=== PATIENT | male | born 1960 ===

== ENCOUNTER 2017-11-22 07:56 | Emergency (ER) | payer SELFPAY ==
[2017-11-22 08:27] LABS: Hemoglobin 17.8 g/dL (14.0-18.0); Mean Corpuscular HGB CONC 34.3 g/dL (32.0-36.0); Mean Corpuscular Hemoglobin 34.9 pg (27.0-31.0); Mean Platelet Volume 7.9 fL (7.4-10.4); Platelet Count 251 thou/uL (130-400); RBC Distribution Width 12.8 % (11.5-14.5); Red Blood Cell (RBC) Count 5.09 mill/uL (4.70-6.10); White Blood Cell (WBC) Count 26.8 thou/uL (4.8-10.8)
[2017-11-22] MEDS ORDERED: CEFAZOLIN 1 GM VIAL ONE ×2 (08:29→08:33)
[2017-11-22] MEDS ORDERED: Fentanyl 100 MCG/2 ML VIAL ONE ×2 (08:30→10:22)
[2017-11-22 08:50] LABS: ALT (SGPT) 134 U/L (8-55); AST (SGOT) 99 U/L (5-34); Albumin 4.2 g/dL (3.5-5.0); Alkaline Phosphatase 72 U/L (40-150); Anion Gap 16 mmol/L (10-20); BUN (Urea Nitrogen) 25 mg/dL (8.4-25.7); Bilirubin, Total 1.3 mg/dL (0.2-1.2); Calc. Creatinine Clearance 0 mL/min (70-130); Calcium 10.1 mg/dL (7.8-10.44); Carbon Dioxide 22 mmol/L (22-29); Chloride 102 mmol/L (98-107); Estimated GFR-MDRD 64; Globulin 3.1 g/dL (2.4-3.5); Glucose 223 mg/dL (70-105); Potassium 3.8 mmol/L (3.5-5.1); Protein, Total 7.3 g/dL (6.0-8.3); Sodium 136 mmol/L (136-145)
[2017-11-22 08:51] LABS: Band 7 % (5-11); Eosinophils 1 % (0-10); Lymphocytes 9 % (21-51); MDiff Complete? YES; Monocytes 1 % (0-10); Neutrophil 81 % (42-75); RBC Morphology Normal; Reactive Lymphocytes 1 % (0-10)
[2017-11-22 09:00] LABS: Troponin I Less than 0.010 ng/mL (< 0.028)
[2017-11-22 09:04] LABS: CKMB 8.1 ng/mL (0-6.6)
[2017-11-22] MEDS ORDERED: Proparacaine 0.5% Opth 15 ML BOT ONE (09:27)
[2017-11-22] MEDS ORDERED: Fluorescein Opthalmic Strip ONE (09:27)
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
[2017-11-22 11:17] LABS: Bilirubin Negative (Negative); Blood, Urine Small (Negative); Glucose, Urine (Dipstick) Negative (Negative); Leukocyte Negative (Negative); Nitrite Negative (Negative); Protein, Urine (Dipstick) Negative (Neg-Trace)
[2017-11-22 11:26] LABS: Clarity CLEAR (Clear)
[2017-11-22 11:27] LABS: Bacteria/HPF 1+ HPF (None Seen); Hyaline Casts/LPF NONE SEEN LPF (0-3 Hyaline); Squamous Epithelial 0-3 HPF (0-3)
[2017-11-22] MEDS ORDERED: Cyclobenzaprine 10 MG TAB ONE (11:36)
[2017-11-22] MEDS ORDERED: Lidocaine 1% w/Epinephrine 1:100K 20 ML VIAL ONE (11:40)
[2017-11-22] MEDS ORDERED: HYDROcodone/Acetaminophen 10/325 mg Tablet ONE (13:23)
[2017-11-22] MEDS ORDERED: Ketorolac Tromethamine 30 MG/ML VIAL ONE (13:24)
[2017-11-22] MEDS ORDERED: Clindamycin/D5W 900 mg/50 ml Premix Bag ONE (13:24)
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
== END 2017-11-22 15:30 | disposition home or self-care (01) ==
LOC: ERS 07:56
DX: S22.42XA Multiple fractures of ribs, left side, initial encounter for closed fracture (principal); S01.81XA Laceration without foreign body of other part of head, initial encounter; S09.93XA Unspecified injury of face, initial encounter; V89.2XXA Person injured in unspecified motor-vehicle accident, traffic, initial encounter
CPT/HCPCS: 12011; 36415; 70450; 70486; 71260; 72125; 74177; 80053; 81003; 81015; 82553; 84484; 85025; 86850; 86900; 86901; 87086; 90471; 93005; 94799; 96361; 96365; 96367; 96375; 96376; G0390; J0690; J1885; J2001; J3010; J3490

== ENCOUNTER 2019-05-30 21:45 | Inpatient (IN) | payer SELFPAY ==
[2019-05-30] MEDS ORDERED: Ondansetron PF 4 MG/2 ML Vial IVP PRN (23:26)
[2019-05-30] MEDS ORDERED: Acetaminophen 325 MG TAB PO PRN (23:26)
[2019-05-30] MEDS ORDERED: hydrALAZINE 20 MG/ML VIAL SLOW IVP PRN ×2 (23:40→23:53)
[2019-05-30] MEDS: HYDROcodone/Acetaminophen 7.5/325 mg Tablet PO PRN (23:58)
[2019-05-30] MEDS: Sodium Chloride 0.9% 1,000 ML IV SCH (23:59)
[2019-05-31 00:28] LABS: Bacteria/HPF None Seen HPF (None Seen); Bilirubin Negative (Negative); Blood, Urine Negative (Negative); Clarity Turbid (Clear); Glucose, Urine (Dipstick) 50 mg/dL (Negative); Leukocyte Negative Leu/uL (Negative); Nitrite Negative (Negative); Protein, Urine (Dipstick) 70 mg/dL (Neg-Trace); RBC/HPF 0-3 HPF (0-3); Squamous Epithelial 0-3 HPF (0-3); Urobilinogen 3 mg/dL (Less than 2)
[2019-05-31 00:29] LABS: Urine Culture Reflex Yes Yes
--- NOTE | 2019-05-31 03:05 | HP ---
CHIEF COMPLAINT: Dizziness, headache, fall. HISTORY OF PRESENT ILLNESS: Mr. Escamilla is a 59-year-old gentleman, who initially presented to [facility] ER earlier today for evaluation of dizziness that has been present for one week, headache, and fall today. The patient states that he did not hit his head when he fell today. He also notes recent sinus congestion and runny nose with pressure behind his eyes. It is unknown if patient has had a fever over recent weeks. The patient was transferred to [facility] in [place] to be admitted to the critical care unit for a higher level of care. This is due to CT brain findings of large acute on chronic right subdural hematoma with significant midline shift. Additionally, old fluid was noted in the maxillary sinuses. Initial labs revealed elevated white blood cell count of 26 and low platelet count of 17. Aside from recent presumed sinus infection, the patient states that he is otherwise fairly healthy and does not take any medications on a regular basis. He reports occasional social alcohol use, but denies dependence or reliance on alcohol. He denies any illicit drug use. He denies any known personal or family history of cancer. He is not on any aspirin or blood thinners. He does report increased generalized weakness recently, however, he denies any acute vision changes, nausea, vomiting, chest pain, or shortness of breath. PHYSICAL EXAMINATION: The patient is awake, alert, and appropriate. He is alert and oriented x3. He correctly identifies his full name, the days of week, the month, the year, and states that he is in a hospital in [place], [place]. He was only unable to state the exact date being the of this month. He is able to correctly identify a pen and says of its use. He was able to correctly define and island. Cranial nerves 2 through 12 are intact. Pupils equal, round, reactive to light. Extraocular movements are intact. No nystagmus present. No tongue fasciculations. No pronator drift. The patient has excellent strength throughout his upper extremity and lower extremity myotomes bilaterally. Sensation to light touch is intact and equal in his upper and lower extremities bilaterally. Gait was not assessed. The patient was somewhat more sleepy upon arrival to [facility] in [place] compared to when he was seen prior to transfer. Otherwise, his neuro exam remained stable. IMPRESSION/DIAGNOSES: 1. Large right subdural hematoma, acute on chronic. 2. Dizziness, headache, recent fall. 3. Thrombocytopenia. 4. Leukocytosis. PLAN: I have reviewed this patient's case and imaging with Dr. Hart. The patient has been admitted to critical care unit for diligent neuro monitoring with q.1 hour neuro checks. Our service will be contacted with any changes. I have ordered a repeat CT of the brain without contrast to be completed tomorrow morning. The patient is in need of urgent neurosurgical interventions rather than emergent surgeries given his favorable neurologic exam. Focus overnight will be to administer platelets to improve his thrombocytopenia. Ideally, 3 units of platelets would be ordered, however, the hospital only has 2 units available to give the patient, so this has been ordered. Blood cultures, urinalysis with reflex culture, and chest x-ray have been ordered to further workup source of leukocytosis. We have consulted our medical colleagues for medical management. Blood pressure parameters have been set to systolic blood pressure less than 140 and diastolic blood pressure less than 90. The patient remain n.p.o. at this time. Head of bed elevated to 30 degrees. Bedrest at this time. Our team will see the patient in the morning for reevaluation or sooner for any neurologic changes. Please call us with any questions or concerns. This was a 50-minute initial patient encounter, in which greater than 50% of the time was spent in counseling. The remaining time was spent in review of imaging, records, evaluation of the patient, examination, and formulation of a plan. Job ID: [id number]
[2019-05-31 06:41] LABS: INR-International Normal Ratio 1.2; PTT 31.2 SEC (22.9-36.1); Prothrombin Time 15.5 SEC (12.0-14.7)
[2019-05-31 06:54] LABS: Band 12 % (5-11); Eosinophils 1 % (0-10); Hemoglobin 7.2 g/dL (14.0-18.0); Lymphocytes 26 % (21-51); MDiff Complete? YES; Mean Corpuscular HGB CONC 35.3 g/dL (32.0-36.0); Mean Corpuscular Hemoglobin 37.2 pg (27.0-31.0); Metamyelocyte 11 % (0-0); Monocytes 3 % (0-10); Myelocyte 3 % (0-0); Neutrophil 43 % (42-75); Nucleated RBC 4 % (0); Platelet Count 89 thou/uL (130-400); Platelet Morphology Comment Appears Decreased; RBC Distribution Width 14.3 % (11.5-14.5); Reactive Lymphocytes 1 % (0-10); Red Blood Cell (RBC) Count 1.94 mill/uL (4.70-6.10); White Blood Cell (WBC) Count 25.4 thou/uL (4.8-10.8)
[2019-05-31 06:56] LABS: Anion Gap 16 mmol/L (10-20); BUN (Urea Nitrogen) 27 mg/dL (8.4-25.7); CRP (Inflammatory) 3.38 mg/dL (= or < 0.5); Calc. Creatinine Clearance 94 mL/min (70-130); Calcium 8.6 mg/dL (7.8-10.44); Carbon Dioxide 21 mmol/L (22-29); Chloride 111 mmol/L (98-107); Estimated GFR-MDRD 79; Glucose 96 mg/dL (70-105); Sodium 144 mmol/L (136-145)
[2019-05-31] MEDS ORDERED: Fentanyl 100 MCG/2 ML VIAL ONE (07:20)
[2019-05-31] MEDS ORDERED: Phenylephrine HCL 10 MG/ML VIAL ONE (07:20)
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
[2019-05-31] MEDS ORDERED: Thrombin 5000 UNITS/5 ML VIAL ONE (07:45)
[2019-05-31] MEDS ORDERED: Bacitracin Zinc Ointment 30 gm TUBE ONE (07:45)
[2019-05-31] MEDS ORDERED: Lidocaine 1% w/Epinephrine 1:100K 20 ML VIAL ONE (07:45)
[2019-05-31] MEDS ORDERED: Sodium Chloride 0.9% 10 ML ONE (07:45)
[2019-05-31] MEDS ORDERED: Lidocaine 0.5%/Epinephrine 1:200,000 50 ml Vial ONE (07:51)
[2019-05-31] MEDS: Pantoprazole 40 MG VIAL IVP SCH (08:02)
--- NOTE | 2019-05-31 08:06 | RAD ---
EXAM: Single view of the chest HISTORY: Leukocytosis COMPARISON: None FINDINGS: Single view of the chest shows a normal sized cardiomediastinal silhouette. There is no hanane dence of consolidation, mass, or pleural effusion. The bones are unremarkable. IMPRESSION: No evidence of acute cardiopulmonary disease
[2019-05-31] MEDS ORDERED: levETIRAcetam 1000 MG/100 ML PREMIX BAG ONE (08:57)
[2019-05-31] MEDS ORDERED: FLU VACC QS2019-20(6MOS UP)/PF 60 MCG/0.5 ML SYRINGE IM ONE (09:00)
[2019-05-31] MEDS ORDERED: Ondansetron PF 4 MG/2 ML Vial ONE (10:17)
[2019-05-31] MEDS ORDERED: ePHEDrine/0.9% NaCl/PF SYRINGE 50 mg/10 ml ONE (10:17)
[2019-05-31] MEDS ORDERED: Rocuronium Bromide 10 MG/ML (10ML VIAL) ONE (10:17)
[2019-05-31] MEDS ORDERED: Lidocaine 1% PF 5 ML VIAL ONE (10:17)
[2019-05-31] MEDS ORDERED: Esmolol 100 MG/10 ML VIAL ONE (10:17)
[2019-05-31] MEDS ORDERED: Dexamethasone 20 MG/5 ML VIAL ONE (10:17)
[2019-05-31] MEDS ORDERED: PROPOFOL 200 MG/20 ML VIAL ONE (10:17)
[2019-05-31] MEDS ORDERED: PHENYLEPHRINE-NS 100 MCG/ML 10 ML SYRINGE ONE (10:17)
[2019-05-31] MEDS ORDERED: Glycopyrrolate 0.2 MG/ML 5 ML SYRINGE ONE (10:17)
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
[2019-05-31] MEDS ORDERED: Lorazepam 2 MG/ML VIAL ONE ×2 (10:47→11:01)
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
[2019-05-31 13:25] LABS: Amphetamine Not Detected (NotDetected); Barbiturates Screen Not Detected (NotDetected); Benzodiazepine Screen Detected (NotDetected); Cocaine Metabolite Screen Not Detected (NotDetected); Medtox Control Line Valid? VALID (VALID); Medtox Reader # READER 1; Methadone Not Detected (NotDetected); Methamphetamine Detected (NotDetected); Opiate Screen Detected (NotDetected); Oxycodone Screen Not Detected (NotDetected); Phencyclidine (PCP) Not Detected (NotDetected); THC/Cannabinoid Screen Not Detected (NotDetected); Tricyclic Screen Not Detected (NotDetected)
[2019-05-31] MEDS: Piperacillin/Tazobactam 4.5 GM in Sodium Chloride 0.9% 100 ML IVPB SCH ×3 (13:32→23:02)
[2019-05-31] MEDS: Sodium Chloride 0.9% 1,000 ML IV SCH (13:35)
[2019-05-31] MEDS: Multivitamins, Adult 10 ML, Folic Acid 1 MG, Thiamine HCl 100 MG in Dextrose 5 %-0.45 %... IV SCH (14:14)
--- NOTE | 2019-05-31 14:38 | PDOC.HHP ---
Hospitalist HPI - History of Present Illness History of Present Illness: Consult: Medical management Referral Source: Dr. Hart Mr. Escamilla is a 59 y/o man with PMH of substance abuse, HTN who presents s/p fall with resultant subdural hematoma identified with significant midline shift. He underwent exacuation of hematoma via burrhole today by Neurosurgery. Medical team has been consulted for medical management. Upon evaluation, patient is sedated post procedure. Majority of history obtained from chart. He apparently is a long time drinker and uses cocaine and multiple substances. As per nursing staff, he was quite agitated post procedure and required use of Ativan to calm him down. He does not have history of known liver disease; however, it is noted that his platelets are 89. His urine was positive for opiates as well as benzos. His Hb prior to surgery was around 7.2. Otherwise he has history of apparent hypertension but is not currently on any medication. Hospitalist ROS - Review of Systems ROS unobtainable: due to mental status - Medication Medications: Active Medications Generic Name Dose Route Start Last Admin Trade Name Freq PRN Reason Stop Dose Admin Hydrocodone Bitart/Acetaminophen 1 tab 05/30/19 23:26 05/30/19 23:58 [place] 7.5/325 PO 1 tab Q4H PRN Administration Moderate Pain (4-6) Thiamine HCl 100 mg/ Sodium 51 mls @ 100 mls/hr 05/31/19 11:00 05/31/19 13:32 Chloride IVPB 06/03/19 11:31 Not Given 1100 MARILYNN Piperacillin Sod/Tazobactam 100 mls @ 200 mls/hr 05/31/19 12:00 05/31/19 13: 32 Sod 4.5 gm/ Sodium Chloride IVPB 100 mls Q6HR MARILYNN Administration Multivitamins 10 ml/ Folic 1,011.2 mls @ 80 mls/hr 05/31/19 13:45 05/31/19 14 :14 Acid 1 mg/ Thiamine HCl 100 mg IV 1,011.2 mls / Dextrose/Sodium Chloride Q24HR MARILYNN Administration Pantoprazole Sodium 40 mg 05/31/19 09:00 05/31/19 08:02 Protonix IVP Not Given DAILY MARILYNN Active Medications Acetaminophen (Tylenol) 650 mg PO Q4H PRN PRN Reason: Headache/Fever/Mild Pain (1-3) Hydrocodone Bitart/Acetaminophen ([place] 7.5/325) 1 tab PO Q4H PRN PRN Reason: Moderate Pain (4-6) Last Admin: 05/30/19 23:58 Dose: 1 tab Beer (Beer) 1 each PO Q4H PRN PRN Reason: ALCOHOL CRAVING Diazepam (Valium) 5 mg IVP Q6H PRN PRN Reason: Agitation Last Admin: 05/31/19 18:08 Dose: 5 mg Folic Acid (Folvite) 1 mg PO DAILY [facility] Hydralazine HCl (Apresoline) 10 mg SLOW IVP Q15MIN PRN PRN Reason: SBP greater than 140 Thiamine HCl 100 mg/ Sodium (Chloride) 51 mls @ 100 mls/hr IVPB 1100 [facility] Stop: 06/03/19 11:31 Last Admin: 05/31/19 13:32 Dose: Not Given Piperacillin Sod/Tazobactam (Sod 4.5 gm/ Sodium Chloride) 100 mls @ 200 mls/hr IVPB Q6HR [facility] Last Admin: 05/31/19 18:08 Dose: 100 mls Multivitamins 10 ml/ Folic Acid 1 mg/ Thiamine HCl 100 mg / Dextrose/Sodium Chloride 1,011.2 mls @ 80 mls/hr IV Q24HR [facility] Last Admin: 05/31/19 14:14 Dose: 1,011.2 mls Levetiracetam 500 mg/ Device 100 mls @ 200 mls/hr IVPB BID [facility] Last Admin: 05/31/19 20:40 Dose: 100 mls Potassium Chloride/Sodium Chloride (Ns 0.9% W/ 40 Meq Kcl) 1,000 mls @ 75 mls/ hr IV .[id number] [facility] Last Admin: 05/31/19 19:59 Dose: 1,000 mls Dexmedetomidine HCl 400 mcg/ (Sodium Chloride) 100 mls @ 0 mls/hr IVPB INF [facility] ; Protocol Last Admin: 05/31/19 21:10 Dose: 100 mls Lorazepam (Ativan) 2 mg SLOW IVP Q4H PRN PRN Reason: Agitation Last Admin: 05/31/19 20:34 Dose: 2 mg Miscellaneous Information (Communication Order-Pharmacy) 0 each FS PRN PRN PRN Reason: HOLD BLOOD THINNERS, HOLD ASA Ondansetron HCl (Zofran) 4 mg IVP Q6H PRN PRN Reason: Nausea/Vomiting Pantoprazole Sodium (Protonix) 40 mg IVP DAILY MARILYNN Last Admin: 05/31/19 08:02 Dose: Not Given Sodium Chloride (Flush - Normal Saline) 10 ml IVF PRN PRN PRN Reason: Saline Flush Sodium Chloride (Normal Saline Pf) 10 ml FS PRN PRN PRN Reason: RECONSTITUTION Hospitalist History - Past Medical History Source: RN notes reviewed Cardiac: reports: HTN Pulmonary: reports: no pertinent history JOB HAND: reports: no pertinent history Gastrointestinal: reports: no pertinent history Heme/Onc: reports: no pertinent history Hepatobiliary: reports: no pertinent history Psych: reports: Addictions Musculoskeletal: reports: no pertinent history Infectious Disease: reports: no pertinent history ENT: reports: no pertinent history Renal/: reports: no pertinent history Endocrine: reports: no pertinent history Dermatology: reports: no pertinent history - Past Surgical History Past Surgical History: reports: no pertinent history - Family History Family History: reports: no pertinent history - Social History Smoking Status: Smoker, status unknown Alcohol: reports: Heavy Drugs: reports: cocaine, Other Activity level: independent ambulation - Exam General - other findings: Sedated post ativan Eye: PERRL ENT - other findings: righ cranium s/p burrhole drainage of serosanguinous into bag Neck: supple, no JVD Heart: RRR, no murmur, no gallops, no rubs Respiratory: CTAB, no wheezes, no rales, no ronchi Gastrointestinal: soft, non-tender, non-distended, normal bowel sounds, no palpable masses, no hepatomegaly, no splenomegaly, no bruit Skin: normal turgor, no lesions, no rashes Neurological - other findings: Unable to assess at this time, patient is sedated Psychiatric: somnolent Hospitalist Results - Labs Result Diagrams: 05/31/19 15:57 05/31/19 06:20 Lab results: WBC 25.4 thou/uL (4.8-10.8) H 05/31/19 06:20 Hgb 7.2 g/dL (14.0-18.0) L 05/31/19 06:20 Hct 20.4 % (42.0-52.0) L 05/31/19 06:20 MCV 105.0 fL (78.0-98.0) H 05/31/19 06:20 Plt Count 89 thou/uL (130-400) L 05/31/19 06:20 Band Neuts % (Manual) 12 % (5-11) H 05/31/19 06:20 ESR Westergren 19 mm/hr (Less than 20) 05/31/19 06:20 Sodium 144 mmol/L (136-145) 05/31/19 06:20 Potassium 4.0 mmol/L (3.5-5.1) 05/31/19 06:20 Chloride 111 mmol/L (98-107) H 05/31/19 06:20 Carbon Dioxide 21 mmol/L (22-29) L 05/31/19 06:20 BUN 27 mg/dL (8.4-25.7) H 05/31/19 06:20 Creatinine 0.98 mg/dL (0.7-1.3) 05/31/19 06:20 Glucose 96 mg/dL (70-105) 05/31/19 06:20 Calcium 8.6 mg/dL (7.8-10.44) 05/31/19 06:20 C-Reactive Protein 3.38 mg/dL (= or < 0.5) H 05/31/19 06:20 Urine Ketones Trace mg/dL (Negative) A 05/30/19 23:46 Urine Blood Negative (Negative) 05/30/19 23:46 Urine Nitrite Negative (Negative) 05/30/19 23:46 Ur Leukocyte Esterase Negative Ramin/uL (Negative) 05/30/19 23:46 Urine RBC 0-3 HPF (0-3) 05/30/19 23:46 Urine WBC 4-6 HPF (0-3) A 05/30/19 23:46 Ur Squamous Epith Cells 0-3 HPF (0-3) 05/30/19 23:46 Urine Bacteria None Seen HPF (None Seen) 05/30/19 23:46 - Radiology Interpretation CT scan - head Status: report reviewed by md Hospitalist H&P A/P - Problem (1) Subdural hematoma Code(s): S06.5X9A - TRAUM SUBDR HEM W LOC OF UNSP DURATION, INIT Status: Acute Assessment and Plan: s/o burrhole evacuation 05/31/19 (2) Leukocytosis Code(s): D72.829 - ELEVATED WHITE BLOOD CELL COUNT, UNSPECIFIED Status: Acute Assessment and Plan: likely reactive to subdural hematoma (3) Thrombocytopenia Code(s): D69.6 - THROMBOCYTOPENIA, UNSPECIFIED Status: Acute (4) Polysubstance (excluding opioids) dependence Code(s): F19.20 - OTHER PSYCHOACTIVE SUBSTANCE DEPENDENCE, UNCOMPLICATED Status: Acute (5) Alcohol abuse Code(s): F10.10 - ALCOHOL ABUSE, UNCOMPLICATED Status: Acute (6) Macrocytic anemia Code(s): D53.9 - NUTRITIONAL ANEMIA, UNSPECIFIED Status: Acute - Plan Plan: POD1 from burrhole evacuation. Continue with ASE for alcohol withdrawl sxs. Ativan PRN for anxiety/agitation Unknown history of liver disease, further workup include US liver Peripheral smear for thrombocytopenia WBC likely reactive, continue to monitor post surgery Macrocytic anemia likely due to alcoholism, will order vitamin b12 and folate Thank you for this consultation. We will continue to follow along with you.
[2019-05-31] MEDS: Lorazepam 2 MG/ML VIAL SLOW IVP PRN ×3 (14:50→20:34)
[2019-05-31 16:48] LABS: Band 9 % (5-11); Differential Comment Blast-Like Cell(s); Hemoglobin 8.8 g/dL (14.0-18.0); Lymphocytes 30 % (21-51); MDiff Complete? YES; Mean Corpuscular HGB CONC 35.3 g/dL (32.0-36.0); Mean Corpuscular Hemoglobin 35.5 pg (27.0-31.0); Mean Platelet Volume 8.3 fL (7.4-10.4); Metamyelocyte 6 % (0-0); Myelocyte 10 % (0-0); Neutrophil 35 % (42-75); Platelet Count 59 thou/uL (130-400); Platelet Morphology Comment Appears Decreased; Polychromasia SLIGHT = 2-3 cells (100X) (0-2/hpf); RBC Distribution Width 16.2 % (11.5-14.5); Reactive Lymphocytes 1 % (0-10); Red Blood Cell (RBC) Count 2.47 mill/uL (4.70-6.10); Reflex for Review?? YES; White Blood Cell (WBC) Count 19.4 thou/uL (4.8-10.8)
[2019-05-31] MEDS ORDERED: Diazepam 10 MG/2 ML SYRINGE IVP PRN (17:46)
[2019-05-31] MEDS ORDERED: BEER 1 CAN PO SCH (19:15)
[2019-05-31] MEDS ORDERED: [UNRECOGNIZED DRUG - REMARK] FS PRN (19:15)
[2019-05-31] MEDS: NS 0.9% w/ 40 MEQ KCL 1,000 ML IV SCH (19:59)
[2019-05-31] MEDS ORDERED: BEER 1 CAN PO PRN (23:00)
[2019-05-31 23:52] LABS: INR-International Normal Ratio 1.4; PTT 32.5 SEC (22.9-36.1)
[2019-06-01 00:05] LABS: Anion Gap 13 mmol/L (10-20); BUN (Urea Nitrogen) 25 mg/dL (8.4-25.7); Calc. Creatinine Clearance 91 mL/min (70-130); Calcium 8.1 mg/dL (7.8-10.44); Carbon Dioxide 22 mmol/L (22-29); Chloride 115 mmol/L (98-107); Estimated GFR-MDRD 75; Glucose 118 mg/dL (70-105); Potassium 3.9 mmol/L (3.5-5.1); Sodium 146 mmol/L (136-145)
[2019-06-01 00:13] LABS: Hemoglobin 7.7 g/dL (14.0-18.0); Mean Corpuscular HGB CONC 35.3 g/dL (32.0-36.0); Mean Corpuscular Hemoglobin 35.7 pg (27.0-31.0); Mean Platelet Volume 8.3 fL (7.4-10.4); Platelet Count 47 thou/uL (130-400); RBC Distribution Width 16.3 % (11.5-14.5); Red Blood Cell (RBC) Count 2.15 mill/uL (4.70-6.10); White Blood Cell (WBC) Count 22.2 thou/uL (4.8-10.8)
[2019-06-01 00:14] LABS: Band 4 % (5-11); Differential Comment Blast-Like Cell(s); Hypochromia SLIGHT = 6-15 cells (100X) (0-5/hpf); Lymphocytes 32 % (21-51); MDiff Complete? YES; Metamyelocyte 1 % (0-0); Monocytes 14 % (0-10); Myelocyte 7 % (0-0); Neutrophil 36 % (42-75); Nucleated RBC 1 % (0); Platelet Morphology Comment Appears Decreased; Polychromasia SLIGHT = 2-3 cells (100X) (0-2/hpf)
[2019-06-01] MEDS: Piperacillin/Tazobactam 4.5 GM in Sodium Chloride 0.9% 100 ML IVPB SCH ×2 (05:20→11:33)
--- NOTE | 2019-06-01 07:53 | CT ---
PRELIMINARY REPORT/[facility]/EMERGENCY AFTER HOURS PROCEDURE EXAM: CT Head Without Intravenous Contrast. CLINICAL HISTORY: PREVIOUS IMAGING SENT YESTERDAY. F/U BLEED. S/P CRANIOTOMY. TECHNIQUE: Axial computed tomography images of the head/brain without intravenous contrast. COMPARISON: CT - CT BRAIN WO CON - 05/31/2019 03:30 AM GLASS BENDER FINDINGS: BRAIN: Status post right frontal and parietal bur hole craniotomies, with placement of an extra-axial drain along the right frontal convexity, with expected postprocedural foci of pneumocephalus. Reduction in size of mixed attenuation right frontoparietal subdural hematoma, currently measuring up to 1.5 cm in thickness in the axial plane (previously 2.3 cm). Small amount of subdural blood products layering a long the right falx and right tentorium. Unchanged small areas of subdural hemorrhage along the left anterior falx and inner table of the anterior left frontal calvarium, measuring up to 2-3 mm. Reducti on in right to left midline shift, currently measuring about 5 mm, up to 1.[address] Red uced effacement of the right lateral ventricle. No evidence of significant obstructive hydrocephalus . No new or increasing areas of hemorrhage. Preserved thompson-white matter differentiation otherwise. No significant transtentorial or tonsillar herniation. Preserved basal cisterns. ORBITS: The orbits are unremarkable. SINUSES AND MASTOIDS: Status post right maxillary antrectomy. Moderate mucosal thickening of the rig ht maxillary sinus. For mild mucosal thickening of the ethmoid and sphenoid sinuses. Partial opacif ication of the frontal sinuses. No air-fluid fluid levels. The mastoid air cells are clear. SOFT TISSUES: Right lateral frontoparietal soft tissue swelling and skin closure norma, post postpr ocedural in nature. BONES: No acute skull fracture. IMPRESSION: 1. Status post right parietal and frontal bur hole craniotomies, subdural hematoma evacuation and ri ght frontal subdural drainage catheter placement, with reduction in mass-effect, midline shift size a nd size of right subdural hemorrhage. 2. Similar small foci of left frontal subdural hemorrhage. 3. Paranasal sinus disease. ELECTRONICALLY SIGNED BY: Salvatore Ladd MD Jun 01, 2019 4:34:36 AM GLASS BENDER FINAL REPORT EMERGENT AFTER HOURS CT OF THE BRAIN WITHOUT CONTRAST: COMPARISON: 05/31/2019. FINDINGS/IMPRESSION: I agree with the findings and impression given in the preliminary report per [facility] physici an. There are interval postsurgical changes for evaluation of the right subdural hematoma with decre ased size of the hematoma. There is a stable very small left frontal subdural hematoma.
--- NOTE | 2019-06-01 07:59 | ULT ---
US Gallbladder RUQ: 06/01/2019 12:00 AM CLINICAL HISTORY: Elevated LFTs. STUDY: Limited right upper quadrant ultrasound of abdomen. COMPARISON: None. FINDINGS: Liver: Size: Normal. Echogenicity: Normal. Contour: Smooth. Mass: None. Bile ducts: No intrahepatic or extrahepatic biliary dilatation. Common bile duct measures 4 mm. Gallbladder: Cholelithiasis. Pancreas: Not visualized. Right kidney: No pelvicalyceal dilatation. Right kidney measuring 11.2 cm in length. IMPRESSION: Cholelithiasis
[2019-06-01] MEDS: NS 0.9% w/ 40 MEQ KCL 1,000 ML IV SCH ×2 (08:32→21:36)
[2019-06-01 08:49] LABS: Mean Corpuscular HGB CONC 34.5 g/dL (32.0-36.0); Mean Corpuscular Hemoglobin 34.1 pg (27.0-31.0); Mean Corpuscular Volume 98.9 fL (78.0-98.0); RBC Distribution Width 16.5 % (11.5-14.5); Red Blood Cell (RBC) Count 2.65 mill/uL (4.70-6.10)
[2019-06-01 08:51] LABS: Anion Gap 12 mmol/L (10-20); BUN (Urea Nitrogen) 28 mg/dL (8.4-25.7); Calc. Creatinine Clearance 90 mL/min (70-130); Calcium 7.9 mg/dL (7.8-10.44); Carbon Dioxide 23 mmol/L (22-29); Chloride 112 mmol/L (98-107); Estimated GFR-MDRD 75; Glucose 122 mg/dL (70-105); Sodium 143 mmol/L (136-145)
[2019-06-01] MEDS ORDERED: Folic Acid 1 MG TAB PO SCH (09:00)
[2019-06-01] MEDS ORDERED: Polyvinyl Alcohol 1.4%/Povidone 0.6% Opth Drops EA EYE PRN (09:04)
[2019-06-01 09:22] LABS: Band 9 % (5-11); Eosinophils 2 % (0-10); Hypersemented Neutrophil SLIGHT; Hypochromia SLIGHT = 6-15 cells (100X) (0-5/hpf); Large Platelets SLIGHT; Lymphocytes 23 % (21-51); MDiff Complete? YES; Mean Platelet Volume 8.9 fL (7.4-10.4); Metamyelocyte 9 % (0-0); Monocytes 18 % (0-10); Myelocyte 2 % (0-0); Neutrophil 29 % (42-75); Nucleated RBC 2 % (0); Platelet Count 52 thou/uL (130-400); Platelet Morphology Comment Appears Decreased; Reactive Lymphocytes 5 % (0-10); Vacuoles SLIGHT; White Blood Cell (WBC) Count 19.5 thou/uL (4.8-10.8)
[2019-06-01 09:51] LABS: Acetaminophen Less than 6.0 mcg/mL (10.0-30.0); Salicylate Less than 8.0 mg/dL (15.0-30.0)
[2019-06-01] MEDS: Sodium Chloride 0.9% (PF) 10 ML VIAL FS PRN (10:35)
[2019-06-01] MEDS: Pantoprazole 40 MG VIAL IVP SCH ×2 (10:35→20:28)
--- NOTE | 2019-06-01 11:20 | OP ---
DATE OF PROCEDURE: 05/30/2019 LOCATION: OR 12. PRISM MEASURER: Yane Calle PA-C A modifier 57 should be added to this surgery as the decision to operate was made when I saw the patient. PRE-PROCEDURE DIAGNOSES: Large right multi-aged subdural hematoma with midline shift, mass effect, and neurologic decline. POSTPROCEDURE DIAGNOSES: Large right multi-aged subdural hematoma with midline shift, mass effect, and neurologic decline. PROCEDURE PERFORMED: Right frontal john paul hole evacuation of chronic subdural hematoma. DESCRIPTION OF PROCEDURE: After informed consent was obtained from the patient's girlfriend and the nature of the pathology and procedure described, we took the patient to the OR. Proper patient, pause, and identification were carried out. He was placed under excellent general endotracheal anesthesia and positioned supine. The right frontal region and parietal regions were sterilely cleansed, prepared, and draped and the hair was clipped. The wounds were then opened with combination of sharp, monopolar, and blunt dissection following sterile cleansing, preparation, and draping. Bur holes were fashioned, the dura was opened, motor oil fluid came out under significant pressure. We evacuated this and irrigated until it was clear. We then placed a red rubber catheter in the frontal hole and secured this. This was secured to the scalp. The wounds were copiously irrigated again and closed in anatomic layers, the patient emerged from anesthesia. Job ID: [id number]
[2019-06-01 11:41] LABS: ALT (SGPT) 18 U/L (8-55); AST (SGOT) 52 U/L (5-34); Albumin 3.3 g/dL (3.5-5.0); Alkaline Phosphatase 139 U/L (40-110); Bilirubin, Direct 0.7 mg/dL (0.1-0.3); Bilirubin, Total 1.3 mg/dL (0.2-1.2); Protein, Total 5.8 g/dL (6.0-8.3)
--- NOTE | 2019-06-01 12:12 | PRG ---
DATE OF SERVICE: 06/01/2019 SUBJECTIVE: The patient began to exhibit signs of alcohol withdrawal yesterday afternoon and has been placed on Precedex, which has helped his agitation. OBJECTIVE: VITAL SIGNS: His temperature 97.8, pulse 60, blood pressure 85/64, and O2 saturation in the low 90s. HEENT: He has a right parietal drain in place. NECK: No adenopathy or JVD. LUNGS: Clear to auscultation. CARDIAC: S1 and S2. Regular. ABDOMEN: Soft. EXTREMITIES: No edema. LABORATORY DATA: White blood cell count 19.5, hematocrit 26.2, and platelet count 52. He has 29% neutrophils, 9% bands, 9% metamyelocytes, and 2% myelocytes. The differential comments had blast type cells. Sodium 143, potassium 4, chloride 112, CO2 of 23, BUN 28, creatinine 1.0, and glucose 122. His UDS is positive for opiates, methamphetamines, and benzodiazepines. ASSESSMENT: 1. Status post subdural hematoma, which has now been evacuated. 2. Anemia. 3. Thrombocytopenia. 4. Blasts like cells on CBC. 5. Alcohol withdrawal. PLAN: 1. Continue Precedex. 2. Continue ICU care. 3. Consider Hematology consult for abnormality seen on smear. Job ID: [id number]
--- NOTE | 2019-06-01 12:16 | PRG ---
DATE OF SERVICE: 06/01/[address] looks satisfactory today. His drain output has been approximately 85 mL. We will leave this in place. He has been quite rambunctious and wild, turns out evidently according to his brothers. He is a heavy drinker. He denies it and states that he only drinks on the weekend. His tox screen is positive for methamphetamine as well. Obviously, this does not help and explains his hypertension. Nevertheless, his thrombocytopenia and anemia continue to be a challenge and note that his abdominal ultrasound in regard to his liver was negative. We will add some liver enzymes, but we appreciate our assessment from GI doctors. He is much more tame and calm today, appears to be neurologically intact. Job ID: [id number]
[2019-06-01] MEDS: HYDROcodone/Acetaminophen 7.5/325 mg Tablet PO PRN ×3 (12:43→22:15)
--- NOTE | 2019-06-01 14:01 | PDOC.HOSPP ---
- Subjective Encounter Date: 06/01/19 Encounter Time: 12:45 Subjective: Patient reports taking 3-4 aleve daily x >2 yrs for his back pain. He came in due to headaches for 1-2 wks with easy bruising. Found to have a subdural hematoma and underwent john paul hole surgery. Reports blood in stools, melena, bleeding gums and nosebleeds. Denies blood vomitus but reports blood in sputum. Denies blood in urine. Reports drinking alcohol only on the weekends. - Objective Vital Signs & Weight: Vital Signs (12 hours) Temp 06/01/19 07:40 97.8 F 06/01/19 07:00 97.8 F 06/01/19 03:00 98.9 F Weight Admit Weight 178 lb 12.718 oz Weight 178 lb 2.136 oz Most Recent Monitor Data Heart Rate from ECG 70 NIBP 110/62 NIBP BP-Mean 78 Respiration from ECG 21 SpO2 100 I&O: 05/31/19 06/01/19 06/02/19 06:59 06:59 06:59 Intake Total 934 2552 810 Output Total 75 2030 505 Balance 859 522 305 Result Diagrams: 06/01/19 08:24 06/01/19 08:24 Hospitalist ROS - Medication Medications: Active Medications Generic Name Dose Route Start Last Admin Trade Name Freq PRN Reason Stop Dose Admin Hydrocodone Bitart/Acetaminophen 1 tab 05/30/19 23:26 06/01/19 12:43 [place] 7.5/325 PO 1 tab Q4H PRN Administration Moderate Pain (4-6) Piperacillin Sod/Tazobactam 100 mls @ 200 mls/hr 05/31/19 12:00 06/01/19 11: 33 Sod 4.5 gm/ Sodium Chloride IVPB 100 mls Q6HR MARILYNN Administration Multivitamins 10 ml/ Folic 1,011.2 mls @ 80 mls/hr 05/31/19 13:45 05/31/19 14 :14 Acid 1 mg/ Thiamine HCl 100 mg IV 1,011.2 mls / Dextrose/Sodium Chloride Q24HR MARILYNN Administration Levetiracetam 500 mg/ Device 100 mls @ 200 mls/hr 05/31/19 21:00 06/01/19 10: 35 IVPB 100 mls BID MARILYNN Administration Potassium Chloride/Sodium Chloride 1,000 mls @ 75 mls/hr 05/31/19 18:45 06/01 08:32 Ns 0.9% W/ 40 Meq Kcl IV Not Given .[id number] MARILYNN Dexmedetomidine HCl 400 mcg/ 100 mls @ 0 mls/hr 05/31/19 21:00 06/01/19 02:48 Sodium Chloride IVPB 100 mls INF MARILYNN Administration Protocol Titrate Lorazepam 2 mg 05/31/19 13:33 05/31/19 20:34 Ativan SLOW IVP 2 mg Q4H PRN Administration Agitation Polyvinyl Alcohol/Povidone 0 each 06/01/19 09:04 06/01/19 11:24 Refresh Classic Eye Drops EA EYE 1 each Q2H PRN Administration Dry Eyes Sodium Chloride 10 ml 05/31/19 02:41 06/01/19 10:35 Normal Saline Pf FS 10 ml PRN PRN Administration RECONSTITUTION - Exam General Appearance: awake alert, ill appearing General - other findings: dressing on right side of head with a drain in place Eye: PERRL, anicteric sclera ENT: dry oral mucosa Heart: RRR, no murmur, no gallops, normal peripheral pulses Respiratory: CTAB, no wheezes, no rales, normal chest expansion Gastrointestinal: soft, non-tender, non-distended, normal bowel sounds Gastrointestinal - other findings: Marie cath with dark urine Hosp A/P (1) Subdural hematoma Code(s): S06.5X9A - TRAUM SUBDR HEM W LOC OF UNSP DURATION, INIT Status: Acute Plan: s/p John Paul hole by primary team Avoid anticoagulant meds Patient and family not sure if he had a fall Unknown etiology?! Further management per primary team High risk due to risk of worsening status and risk of seizures (2) Hematochezia Code(s): K92.1 - MELENA Status: Acute Plan: GI consulted termite treater helper use of aleve with hematochezia and melena Possible PUD/gastritis Increase PPI IV to BID GI consulted - May need EGD Monitor H&H closely and transfuse PRN (3) Anemia Code(s): D64.9 - ANEMIA, UNSPECIFIED Status: Acute Qualifiers: Anemia type: other cause Other causes of anemia: acute posthemorrhagic Qualified Code(s): D62 - Acute posthemorrhagic anemia Plan: Related to blood loss from subdural hematoma, hematochezia, melena, nose and gum bleeds Possibly related to NSAID use Transfuse PRN (4) Folate deficiency Code(s): E53.8 - DEFICIENCY OF OTHER SPECIFIED B GROUP VITAMINS Status: Acute Plan: On IV multivitamin replacement Needs long-term PO replacement Patient has poor nutrition according to family (5) DIC (disseminated intravascular coagulation) Code(s): D65 - DISSEMINATED INTRAVASCULAR COAGULATION Status: Suspected Plan: Patient has 1-2 wks history of gum and nose bleeds, easy bruising, hematochezia , melena and admitted due to subdural hematoma Has elevated INR, anemia and worsening thrombocytopenia Has dark urine Concern for DIC I will obtain D-dimer, Fibrin split products and Fibrinogen level Repeat INR tomorrow Will consider hematology/oncology consultation based on results of testing (6) Thrombocytopenia Code(s): D69.6 - THROMBOCYTOPENIA, UNSPECIFIED Status: Acute Plan: Worsening Liver US without cirrhosis Maybe related to DIC Will DC zosyn at it can cause thrombocytopenia Start cefepime Monitor closely and transfuse if counts or bleeding worsens Will consider hematology consultation - Plan plan discussed w/ family, DVT proph w/SCDs
[2019-06-01] MEDS: Multivitamins, Adult 10 ML, Folic Acid 1 MG, Thiamine HCl 100 MG in Dextrose 5 %-0.45 %... IV SCH (14:39)
[2019-06-01 14:44] LABS: Fibrinogen 182 mg/dL (253-463)
[2019-06-01 14:45] LABS: FSP-Qualitative ABNORMAL (Normal)
[2019-06-01 14:49] LABS: FSP-Semiquantitative >=20 & <40 mcg/mL (Less than 5)
[2019-06-01 14:53] LABS: D-Dimer Test 13.86 *mcg/mL (0.27-0.43)
[2019-06-01 14:59] LABS: Differential Comment Blast-Like Cell(s)
[2019-06-01 15:17] LABS: Free T4 (Free Thyroxine) 1.2 ng/dL (0.70-1.48); T4 7.7 ug/dL (4.87-11.72)
[2019-06-01] MEDS: Cefepime 1 GM in Sodium Chloride 0.9% 100 ML IVPB SCH (17:29)
[2019-06-01 17:33] LABS: Blood, Urine Large (Negative); Glucose, Urine (Dipstick) Negative (Negative); Leukocyte Negative (Negative); Nitrite Negative (Negative); Protein, Urine (Dipstick) > or equal to 300 mg/dL (Neg-Trace)
[2019-06-01 17:43] LABS: Clarity Opaque (Clear)
[2019-06-01 17:44] LABS: Bilirubin Unable to Interpret (Negative); Urobilinogen > or = 8.0 mg/dL (Less than 2)
[2019-06-01 17:53] LABS: RBC/HPF Greater than 50 HPF (0-3)
[2019-06-01 17:54] LABS: Bacteria/HPF None Seen HPF (None Seen); Squamous Epithelial 0-3 HPF (0-3)
[2019-06-01 17:56] LABS: Urine Culture Reflex Yes Yes
[2019-06-01] MEDS: Nicotine 7 MG PATCH TOP SCH (19:29)
--- NOTE | 2019-06-01 22:37 | CT ---
CT OF ABDOMEN AND PELVIS: Date: 06-01-19 Comparison: 11-22-17 History: Hematuria, oligoria Technique: Axial CT imaging obtained at 5 mm intervals from lung bases through pubic symphysis withou t contrast. Coronal and sagittal reformatted imaging obtained. FINDINGS: The visualized lung bases are unremarkable. Lack of contrast media limits assessment of the viscera, bowel vascular structures and for lymphadenopathy. Punctate calcifications in the gallbladder suggest small gallstones. The liver, spleen, and adrenal glands appear grossly unremarkable. There is mild stranding in the reg ion of the pancreatic head and uncinate process with mild enlargement of the pancreas in this region. This may signify subtle change associated with pancreatitis. The adrenal glands and kidneys demonstr ate no acute findings. Nonobstructing stone in midpole of left kidney noted measuring 5 mm. There is an exophytic cyst emanating from the lower pole of the left kidney. There is a punctate nonobstructin g stone in the upper pole of the right kidney. A Marie catheter is present within a decompressed urinary bladder. Small fat containing inguinal padmini ia noted on the right. Limited assessment of the bowel demonstrates diverticulosis of the sigmoid colon with no evidence for diverticulitis. There are scattered atherosclerotic calcification of the abdominal aorta. The osseous structures demonstrate degenerative change at the lumbosacral junction with facet hypertr ophy, disc space narrowing, and vacuum disc formation. No worrisome lytic or blastic bone lesion. IMPRESSION: Punctate gallstones are noted. Stranding in the region of the pancreatic head and proximal body/uncin ate process may signify acute pancreatitis. Clinical correlation is advised with laboratory assessmen t. Punctate nonobstructing renal calculi bilaterally. POS: JT
[2019-06-02] MEDS: Cefepime 1 GM in Sodium Chloride 0.9% 100 ML IVPB SCH ×2 (03:23→14:57)
[2019-06-02] MEDS: NS 0.9% w/ 40 MEQ KCL 1,000 ML IV SCH ×3 (03:24→11:11)
[2019-06-02 03:58] LABS: INR-International Normal Ratio 1.2; Prothrombin Time 15.3 SEC (12.0-14.7)
[2019-06-02 04:25] LABS: Albumin 3.5 g/dL (3.5-5.0); Band 4 % (5-11); Globulin 2.7 g/dL (2.4-3.5); Hemoglobin 8.7 g/dL (14.0-18.0); Lymphocytes 38 % (21-51); MDiff Complete? YES; Mean Corpuscular HGB CONC 35.7 g/dL (32.0-36.0); Mean Corpuscular Hemoglobin 34.7 pg (27.0-31.0); Mean Corpuscular Volume 97.2 fL (78.0-98.0); Mean Platelet Volume 8.6 fL (7.4-10.4); Metamyelocyte 3 % (0-0); Monocytes 2 % (0-10); Myelocyte 2 % (0-0); Neutrophil 51 % (42-75); Nucleated RBC 1 % (0); Platelet Count 89 thou/uL (130-400); Platelet Morphology Comment Appears Decreased; RBC Distribution Width 16.8 % (11.5-14.5); White Blood Cell (WBC) Count 21.8 thou/uL (4.8-10.8)
[2019-06-02] MEDS: HYDROcodone/Acetaminophen 7.5/325 mg Tablet PO PRN ×5 (04:30→21:37)
[2019-06-02 04:53] LABS: ALT (SGPT) 22 U/L (8-55); AST (SGOT) 61 U/L (5-34); Alkaline Phosphatase 161 U/L (40-110); Anion Gap 12 mmol/L (10-20); BUN (Urea Nitrogen) 24 mg/dL (8.4-25.7); Calc. Creatinine Clearance 103 mL/min (70-130); Calcium 8.2 mg/dL (7.8-10.44); Carbon Dioxide 23 mmol/L (22-29); Chloride 109 mmol/L (98-107); Estimated GFR-MDRD 84; Glucose 106 mg/dL (70-105); Potassium 3.9 mmol/L (3.5-5.1); Protein, Total 6.1 g/dL (6.0-8.3); Sodium 140 mmol/L (136-145)
[2019-06-02] MEDS: Sodium Chloride 0.9% (PF) 10 ML VIAL FS PRN (08:42)
[2019-06-02] MEDS: Pantoprazole 40 MG VIAL IVP SCH ×2 (08:43→20:58)
--- NOTE | 2019-06-02 08:50 | PDOC.HOSPP ---
- Subjective Encounter Date: 06/02/19 Encounter Time: 08:47 Subjective: awake,alert - Objective Vital Signs & Weight: Vital Signs (12 hours) Temp 06/02/19 07:00 99.1 F 06/02/19 04:00 98.0 F 06/02/19 00:00 97.9 F 06/01/19 23:00 98.0 F 06/01/19 22:45 97.9 F 06/01/19 21:00 97.8 F Weight Admit Weight 178 lb 12.718 oz Weight 182 lb 15.739 oz Most Recent Monitor Data Heart Rate from ECG 105 NIBP 103/62 NIBP BP-Mean 75 Respiration from ECG 37 SpO2 95 I&O: 06/01/19 06/02/19 06/03/19 06:59 06:59 06:59 Intake Total 2552 3889.0 0 Output Total 2030 1820 350 Balance 522 2069.0 -350 Result Diagrams: 06/02/19 03:17 06/02/19 03:17 Hospitalist ROS - Medication Medications: Active Medications Generic Name Dose Route Start Last Admin Trade Name Freq PRN Reason Stop Dose Admin Hydrocodone Bitart/Acetaminophen 1 tab 05/30/19 23:26 06/02/19 04:30 [place] 7.5/325 PO 1 tab Q4H PRN Administration Moderate Pain (4-6) Multivitamins 10 ml/ Folic 1,011.2 mls @ 80 mls/hr 05/31/19 13:45 06/01/19 14 :39 Acid 1 mg/ Thiamine HCl 100 mg IV 1,011.2 mls / Dextrose/Sodium Chloride Q24HR MARILYNN Administration Levetiracetam 500 mg/ Device 100 mls @ 200 mls/hr 05/31/19 21:00 06/02/19 08: 42 IVPB 100 mls BID MARILYNN Administration Potassium Chloride/Sodium Chloride 1,000 mls @ 75 mls/hr 05/31/19 18:45 06/02 03:27 Ns 0.9% W/ 40 Meq Kcl IV 1,000 mls .[id number] MARILYNN Administration Dexmedetomidine HCl 400 mcg/ 100 mls @ 0 mls/hr 05/31/19 21:00 06/01/19 22:16 Sodium Chloride IVPB 100 mls INF MARILYNN Administration Protocol Titrate Cefepime HCl 1 gm/ Sodium 100 mls @ 200 mls/hr 06/01/19 15:00 06/02/19 03:23 Chloride IVPB 100 mls 0300,1500 MARILYNN Administration Lorazepam 2 mg 05/31/19 13:33 05/31/19 20:34 Ativan SLOW IVP 2 mg Q4H PRN Administration Agitation Nicotine 7 mg 06/01/19 18:00 06/01/19 19:29 Nicoderm Patch TOP 7 mg Q24HR MARILYNN Administration Pantoprazole Sodium 40 mg 06/01/19 21:00 06/02/19 08:43 Protonix IVP 40 mg BID MARILNYN Administration Polyvinyl Alcohol/Povidone 0 each 06/01/19 09:04 06/01/19 11:24 Refresh Classic Eye Drops EA EYE 1 each Q2H PRN Administration Dry Eyes Sodium Chloride 10 ml 05/31/19 02:41 06/02/19 08:42 Normal Saline Pf FS 10 ml PRN PRN Administration RECONSTITUTION - Exam General Appearance: awake alert Neck: no JVD Heart: RRR, no murmur Respiratory: CTAB Gastrointestinal: soft, normal bowel sounds Extremities: no edema Neurological: no focal deficits Hosp A/P (1) Subdural hematoma Code(s): S06.5X9A - TRAUM SUBDR HEM W LOC OF UNSP DURATION, INIT Status: Acute (2) Anemia Code(s): D64.9 - ANEMIA, UNSPECIFIED Status: Acute Qualifiers: Anemia type: other cause Other causes of anemia: acute posthemorrhagic Qualified Code(s): D62 - Acute posthemorrhagic anemia (3) Folate deficiency Code(s): E53.8 - DEFICIENCY OF OTHER SPECIFIED B GROUP VITAMINS Status: Acute (4) Polysubstance (excluding opioids) dependence Code(s): F19.20 - OTHER PSYCHOACTIVE SUBSTANCE DEPENDENCE, UNCOMPLICATED Status: Acute (5) Thrombocytopenia Code(s): D69.6 - THROMBOCYTOPENIA, UNSPECIFIED Status: Acute - Plan stable neuro status on folate replacement check lipace based on CT abd report
--- NOTE | 2019-06-02 08:53 | PRG ---
DATE OF SERVICE: 06/02/2019 SUBJECTIVE: The patient is feeling better. He is still on a Precedex drip. He had no acute complaints. OBJECTIVE: VITAL SIGNS: Temperature 98.0, pulse 105, blood pressure 103/62. HEENT: Unremarkable. NECK: No adenopathy or JVD. CHEST: Clear to auscultation. CARDIAC: S1 and S2 regular. ABDOMEN: Soft. EXTREMITIES: No edema. LABORATORY DATA: Platelet count 89, white blood cell count 21.8, hematocrit 24.3. INR 1.2. Sodium 140, potassium 3.9, chloride 109, CO2 of 23, BUN 24, creatinine 0.9, glucose 106. ASSESSMENT: 1. Status post traumatic brain injury/subdural hematoma requiring evacuation. 2. Anemia, thrombocytopenia, and a blasts like cells on CBC. 3. Mild alcohol withdrawal. PLAN: 1. Stop Precedex and observe. 2. Have Hematology consult on the findings from the blood smear. 3. Transfer to floor when okay with Neurosurgery. Job ID: [id number]
--- NOTE | 2019-06-02 09:07 | PRG ---
DATE OF SERVICE: 06/02/2019 This is Jose J Craig PA-C dictating a report for Mariano Hart MD. This is a postoperative note. Mr. Escamilla is postoperative day #2, having undergone right john paul hole placement for subdural evacuation. The patient is much more pleasant and alert this morning. He does not complain of any headache currently. His drain output has been 130 mL in the last 24 hours, so we will keep this in. He was switched to cefepime as there is a concern for that the patient is going into a DIC. His hemoglobin is low at 8.7, down from 9.0. His platelets have improved to 89. He remains on Precedex and Keppra, and we would like to continue these. Sodium is 140, down from 143. White blood cell count is elevated at 21.8, up from 19.5. We appreciate our medical colleagues in helping to manage the patient's medical issues and he will need to be continued to be monitored especially for concern for DIC and some sort of bleeding disorder. Neurologically, the patient is awake and alert, and follows commands in all extremities. He is much less agitated as he has been previously. Please call with any changes in the patient's neurologic status. Otherwise, he may also advance his diet as tolerated. Job ID: [id number]
--- NOTE | 2019-06-02 09:59 | ULT ---
EXAM: Bilateral lower extremity venous ultrasound HISTORY: Bilateral lower extremity edema; decreased mobility COMPARISON: None TECHNIQUE: Multiplanar grayscale and color Doppler images were obtained in a bilateral lower extremit y venous ultrasound. Spectral analysis of the Doppler waveforms were performed. FINDINGS: The bilateral common femoral vein, profunda femoral veins, superficial femoral veins, and p opliteal veins are normal in appearance without visible thrombus. These vessels demonstrate normal compression, flow, and augmentation. The bilateral posterior tibial veins and greater saphenous veins are patent without evidence of throm bus. IMPRESSION: No evidence of DVT.
[2019-06-02] MEDS: Multivitamins, Adult 10 ML, Folic Acid 1 MG, Thiamine HCl 100 MG in Dextrose 5 %-0.45 %... IV SCH (14:32)
[2019-06-02] MEDS: Nicotine 7 MG PATCH TOP SCH (18:03)
--- NOTE | 2019-06-03 01:30 | CON ---
DATE OF CONSULTATION: REQUESTING PHYSICIAN: Hospitalist Service. HISTORY OF PRESENT ILLNESS: Mr. Escamilla is a 59-year-old male, who presented to the hospital on 05/30/2019 with dizziness that was present for 1 week. He was found to have a chronic right-sided subdural hematoma with a midline shift. He was taken to the operating room for evacuation and placement of a drain. The patient since then has had significant thrombocytopenia. He ended up developing gross hematuria, which progressed. He had a Marie catheter in place. However, they were having to manually irrigate this and therefore this was removed and a three-way was placed and continuous bladder irrigation was initiated. The patient has had significantly abnormal CBC with blasts like cells present. There was concern for possible AML. Oncology has evaluated the patient and he is going to have a bone marrow aspiration and biopsy tomorrow. He did have a CT of his abdomen and pelvis performed, which did not demonstrate any significant sign of clot urinary retention. There was no hydronephrosis. There was a small nonobstructing stone in the midpole of the left kidney, otherwise was unremarkable. Urology was consulted for further evaluation. REVIEW OF SYSTEMS: Full 12-point review of systems was performed, and was negative other than that mentioned in HPI. PAST MEDICAL HISTORY: Hypertension. PAST SURGICAL HISTORY: Facial laceration repair. ALLERGIES: NO KNOWN DRUG ALLERGIES. FAMILY HISTORY: Noncontributory. SOCIAL HISTORY: Smokes one pack per day. Occasionally drinks alcohol. Denies any drug use. MEDICATIONS: No medications prior to admission. PHYSICAL EXAMINATION: VITAL SIGNS: Temperature 98.7, heart rate 98, blood pressure 132/61, oxygen saturation 95% on 2 L nasal cannula. GENERAL: He is awake and alert, in no apparent distress. HEENT: Normocephalic, atraumatic. CARDIOVASCULAR: Regular rate and rhythm. PULMONARY: Breathing unlabored. ABDOMEN: Soft, nontender/nondistended. No masses or organomegaly. No suprapubic tenderness to palpation. No CVA tenderness. GENITOURINARY: Normal penis without concerning lesion. Testes palpably normal bilaterally. Three-way Marie catheter in place draining blood-tinged urine on low rate CBI. EXTREMITIES: Warm, well perfused. No edema. LABORATORY DATA: White blood cell count 19.5, hemoglobin 9.0, hematocrit 26.2, platelets 52. Sodium 140, potassium 3.9, chloride 109, bicarb 23, BUN 24, creatinine 0.92. ASSESSMENT: A 59-year-old male with chronic subdural hematoma, thrombocytopenia, gross hematuria, possible acute leukemia. PLAN: I reviewed potential etiologies of gross hematuria with the patient and his family. This is likely secondary to Marie trauma in the setting of his thrombocytopenia. His urine has cleared significantly. His Marie catheter was manually irrigated under sterile conditions at the bedside and there was no clot. Continuous bladder irrigation was restarted at a very slow rate. While in the hospital, at this point, he can continue very slow rate CBI. This can be weaned and turned off when clinically appropriate. A voiding trial can be performed when clinically appropriate as well. On June 04, Dr. Chetan Hurtado will be covering for Urology. Job ID: [id number]
[2019-06-03] MEDS: NS 0.9% w/ 40 MEQ KCL 1,000 ML IV SCH ×2 (01:32→12:26)
[2019-06-03] MEDS: Cefepime 1 GM in Sodium Chloride 0.9% 100 ML IVPB SCH ×2 (02:26→15:29)
[2019-06-03] MEDS: HYDROcodone/Acetaminophen 7.5/325 mg Tablet PO PRN ×4 (03:46→20:06)
[2019-06-03 04:27] LABS: Band 4 % (5-11); Differential Comment Blast-Like Cell(s); Hemoglobin 7.5 g/dL (14.0-18.0); Hypochromia SLIGHT = 6-15 cells (100X) (0-5/hpf); Lymphocytes 23 % (21-51); MDiff Complete? YES; Mean Corpuscular HGB CONC 35.6 g/dL (32.0-36.0); Mean Corpuscular Hemoglobin 35.1 pg (27.0-31.0); Mean Corpuscular Volume 98.4 fL (78.0-98.0); Mean Platelet Volume 9.2 fL (7.4-10.4); Metamyelocyte 2 % (0-0); Monocytes 21 % (0-10); Myelocyte 6 % (0-0); Neutrophil 40 % (42-75); Platelet Count 38 thou/uL (130-400); Platelet Morphology Comment Appears Decreased; RBC Distribution Width 17.2 % (11.5-14.5); Red Blood Cell (RBC) Count 2.14 mill/uL (4.70-6.10); White Blood Cell (WBC) Count 20.4 thou/uL (4.8-10.8)
[2019-06-03] MEDS: Pantoprazole 40 MG VIAL IVP SCH ×2 (08:18→20:05)
--- NOTE | 2019-06-03 09:12 | PDOC.HOSPP ---
- Subjective Encounter Date: 06/03/19 Encounter Time: 09:09 Subjective: alert,oriented - Objective Vital Signs & Weight: Vital Signs (12 hours) Temp 06/03/19 08:00 99.9 F H 06/03/19 04:00 99.9 F H 06/03/19 00:00 98.7 F Weight Admit Weight 178 lb 12.718 oz Weight 184 lb 8.43 oz Most Recent Monitor Data Heart Rate from ECG 93 NIBP 133/73 NIBP BP-Mean 93 Respiration from ECG 22 SpO2 97 I&O: 06/02/19 06/03/19 06/04/19 06:59 06:59 06:59 Intake Total 3889.0 2653 Output Total 1820 3230 Balance 2069.0 -577 Result Diagrams: 06/03/19 03:21 06/02/19 03:17 Hospitalist ROS - Medication Medications: Active Medications Generic Name Dose Route Start Last Admin Trade Name Freq PRN Reason Stop Dose Admin Hydrocodone Bitart/Acetaminophen 1 tab 05/30/19 23:26 06/03/19 08:16 [place] 7.5/325 PO 1 tab Q4H PRN Administration Moderate Pain (4-6) Multivitamins 10 ml/ Folic 1,011.2 mls @ 80 mls/hr 05/31/19 13:45 06/02/19 14 :32 Acid 1 mg/ Thiamine HCl 100 mg IV 1,011.2 mls / Dextrose/Sodium Chloride Q24HR MARILYNN Administration Levetiracetam 500 mg/ Device 100 mls @ 200 mls/hr 05/31/19 21:00 06/02/19 20: 58 IVPB 100 mls BID MARILYNN Administration Potassium Chloride/Sodium Chloride 1,000 mls @ 75 mls/hr 05/31/19 18:45 06/03 01:32 Ns 0.9% W/ 40 Meq Kcl IV 1,000 mls .[id number] MARILYNN Administration Dexmedetomidine HCl 400 mcg/ 100 mls @ 0 mls/hr 05/31/19 21:00 06/01/19 22:16 Sodium Chloride IVPB 100 mls INF MARILYNN Administration Protocol Titrate Cefepime HCl 1 gm/ Sodium 100 mls @ 200 mls/hr 06/01/19 15:00 06/03/19 02:26 Chloride IVPB 100 mls 0300,1500 MARILYNN Administration Lorazepam 2 mg 05/31/19 13:33 05/31/19 20:34 Ativan SLOW IVP 2 mg Q4H PRN Administration Agitation Pantoprazole Sodium 40 mg 06/01/19 21:00 06/03/19 08:18 Protonix IVP 40 mg BID MARILYNN Administration Polyvinyl Alcohol/Povidone 0 each 06/01/19 09:04 06/01/19 11:24 Refresh Classic Eye Drops EA EYE 1 each Q2H PRN Administration Dry Eyes Sodium Chloride 10 ml 05/31/19 02:41 06/02/19 08:42 Normal Saline Pf FS 10 ml PRN PRN Administration RECONSTITUTION - Exam General Appearance: awake alert General - other findings: drain in R calvareum Neck: no JVD Heart: RRR, no murmur Respiratory: CTAB, no wheezes Gastrointestinal: soft, non-tender, normal bowel sounds Extremities: no edema Hosp A/P (1) Subdural hematoma Code(s): S06.5X9A - TRAUM SUBDR HEM W LOC OF UNSP DURATION, INIT Status: Acute (2) Anemia Code(s): D64.9 - ANEMIA, UNSPECIFIED Status: Acute Qualifiers: Anemia type: other cause Other causes of anemia: other cause, not classified Qualified Code(s): D64.89 - Other specified anemias (3) Folate deficiency Code(s): E53.8 - DEFICIENCY OF OTHER SPECIFIED B GROUP VITAMINS Status: Acute (4) Polysubstance (excluding opioids) dependence Code(s): F19.20 - OTHER PSYCHOACTIVE SUBSTANCE DEPENDENCE, UNCOMPLICATED Status: Acute (5) Thrombocytopenia Code(s): D69.6 - THROMBOCYTOPENIA, UNSPECIFIED Status: Acute - Plan stable neuro status on folate replacement planned bone marrow Bx delayed til 1/2 unfortun cont to monitor CBC, etcately
--- NOTE | 2019-06-03 09:39 | CON ---
DATE OF CONSULTATION: REASON FOR CONSULT: Abnormal CBC. HISTORY OF PRESENT ILLNESS: Mr. Escamilla is a pleasant gentleman who presented to the [facility] with headache x1 week. He underwent a CT scan, which showed an acute on chronic subdural hematoma. There was 1.5 cm [id number] midline shift. The patient was symptomatic with headache. He was transferred to this facility and seen by Neurosurgery. He had a craniotomy with hematoma evacuation and is in the ICU recovering. On admission, the patient's white count was 25.4. He was anemic with hemoglobin 7.2 and platelet count of 89, 000. He had 11% metamyelocytes, 3% myelocytes and 4 nucleated reds. Over the course of the past several days, his platelet count has dropped to 47,000. He has been transfused and is currently back at 89,000. He had peripheral smear reviewed by pathology which showed enlarged white blood cells with monocytic type morphology. This was concerning for neoplastic process. The patient states he has been in his normal state of health until the last week or so. He had some hemoptysis and melena. He has a history of tobacco use and had methamphetamine on his drug panel. He complains of headache at this time. He has had hematuria on this admission and is on continuous bladder irrigation. He is seen at bedside in the ICU. He is oriented and answers questions appropriately. PAST MEDICAL HISTORY: 1. Hypertension. 2. Substance abuse. PAST SURGICAL HISTORY: Craniotomy. ALLERGIES: NO KNOWN DRUG ALLERGIES. HOME MEDICATIONS: None. FAMILY HISTORY: He had an uncle with bladder cancer. SOCIAL HISTORY: Single, has a roommate, three grown children. Smokes a pack of cigarettes daily. Occasional alcohol use. REVIEW OF SYSTEMS: A 10-point review of systems is negative except for noted in HPI. PHYSICAL EXAMINATION: VITAL SIGNS: Temperature 98.9, pulse is 118, respiratory rate 28, blood pressure is 140/74, and he is 98% on room air. GENERAL: Well-developed, well-nourished male, appears older than his stated age. HEENT: Pupils are equal and reactive to light. He has a MANISHA drain in place. CV: Regular rate and rhythm. He has occasional PVCs. RESPIRATORY: Lungs are clear to auscultation. ABDOMEN: Soft and nontender. Bowel sounds are positive. : He has continuous bladder irrigation with blood-tinged urine. EXTREMITIES: No clubbing or cyanosis. SKIN: No rash. HEMATOLOGIC: There is no petechiae or purpura. NEUROLOGIC: The patient is alert and oriented. PERTINENT LABS AND X-RAYS: Current WBCs are 21.8, hemoglobin 8.7, hematocrit 24.3, platelet count 89,000, 51% neutrophils, 4% bands, 38% lymphocytes. He has 3% metamyelocytes, 2% myelocytes, 1 nucleated red, 9% blasts. PT is 15.3, INR is 1.2, fibrinogen is 182. D-dimer is 13. Sodium is 140, potassium 3.9, chloride 109, CO2 is 23, BUN is 24, creatinine 0.92, calcium 8.2, uric acid is 7.1, bilirubin is 3.0, AST is 61, ALT is 22, alkaline phosphatase is 161. LDH is 2676. Serum total protein is 6.1, albumin 3.5, globulin 2.7. B12 is greater than 2000, folate is 4.9. CT of his abdomen and pelvis unremarkable. ASSESSMENT: 1. Acute on chronic subdural hematoma, status post craniotomy with hematoma evacuation. 2. Leukocytosis with anemia and thrombocytopenia. 3. Blasts on peripheral smear. DISCUSSION: Case has been discussed in detail with Dr. Michelle. The patient's platelets are 89,000 after 4 units of platelets over this hospitalization. There is no evidence of further bleeding of the brain. He does continue to have hematuria and questionable melena. We would keep the platelets closer to 100 and check daily CBC regarding his abnormal peripheral smear. Flow cytometry has been sent, but ultimately he needs a bone marrow biopsy to rule out leukemia/high-grade myelodysplastic syndrome. This will be ordered and done tomorrow regarding possible DIC. His PTT and INR are normal. His fibrinogen is just marginally low. He feels he is not in DIC. We will continue to support the patient with transfusion and further recommendations will be made after the bone marrow biopsy. Thank you for the consult. Job ID: [id number] [facility]ITAL[facility]
--- NOTE | 2019-06-03 09:47 | PRG ---
DATE OF SERVICE: 06/03/2019 This is Jose J Craig PA-C dictating a report for Mariano Hart MD. Mr. Escamilla is postoperative day #3 having undergone right frontal and parietal john paul hole placement. His drain has put out 30 mL. Neurologically, the patient is much more calm and pleasant today similar to what he was yesterday. He is afebrile. He is no longer on Precedex. He is on cefepime for the continued drain. His ultrasound was negative for bilateral lower extremity DVT. Blood cultures and UA have been negative for infection. The patient remains with thrombocytopenia as well as gross hematuria into the Marie and Urology has been managing the patient. Hematology has also seen the patient and would like to be a bone marrow biopsy, appears to be scheduled for . From neurosurgical standpoint, we would like to continue his red rubber drain. He will remain on antibiotics. He may get in a chair today and maybe even possibly walk around. His platelets again are low around 38 and hemoglobin is less than 8. Therefore, I have ordered 2 units of packed red blood cells and two 6-pack of platelets to be transfused. We will continue to monitor the patient neurologically, although again he is much more oriented, less agitated, calm, pleasant, conversant, follows commands equally in all extremities. He states again he is feeling much better today. Neurosurgery will continue to follow. Please call with any changes in the patient's neurologic status. Job ID: [id number]
--- NOTE | 2019-06-03 10:50 | PRG ---
DATE OF SERVICE: 06/03/2019 SUBJECTIVE: Mr. Escamilla continues to have some oozing around his scalp drain. He has no other complaints at this time. OBJECTIVE: VITAL SIGNS: Temperature 99.9, pulse 93, blood pressure 133/73, and O2 saturation 97% on room air. HEENT: Remarkable for the right parietal drain. NECK: No adenopathy or JVD. CHEST: Clear anteriorly. CARDIAC: S1 and S2. Regular. ABDOMEN: Soft. EXTREMITIES: No edema. LABORATORY DATA: White blood cell count 20, hematocrit 21.0, and platelet count 38. Still has blast like cells on the differential. Flow cytometry demonstrated circulating blasts with recommendation for bone marrow biopsy. ASSESSMENT: 1. Status post subacute right-sided subdural hematoma requiring evacuation. 2. Anemia, thrombocytopenia, and blasts on CBC, probably represents some type of hematologic issue. 3. Alcohol withdrawal, which is resolved. PLAN: He will stay in ICU as long as Neurosurgery needs him here for the drain. A bone marrow biopsy is expected on . He is receiving platelets. He may need packed red blood cells before the end of the week. We will get CBC and basic metabolic panel tomorrow. Job ID: [id number]
[2019-06-03] MEDS: Multivitamins, Adult 10 ML, Folic Acid 1 MG, Thiamine HCl 100 MG in Dextrose 5 %-0.45 %... IV SCH (12:25)
--- NOTE | 2019-06-03 13:15 | PRG ---
DATE OF SERVICE: 06/03/2019 Mr. Escamilla is doing well, postoperative day 3 from right frontal and parietal john paul hole evacuation of subdural hematoma. He is doing well again neurosurgically and is neurologically intact. He has been much more calm. Unfortunately, it does appears as if he is having some sort of blast crisis related to an underlying leukemia. He has bleeding in his urine. He also has a drain that remains in place that has put out 30 mL over the last 12 hours. We will leave this in place. His postoperative head CT is satisfactory. We will likely remove his drain over the next couple of days. I should note an ultrasound of the legs is negative for DVT. Job ID: [id number]
--- NOTE | 2019-06-03 13:53 | PDOC.MOPN ---
Interval History: responsive but sleepy - Vital Signs Vital Signs: Vital Signs (12 hours) Temp Pulse Ox 06/03/19 11:00 98.7 F 06/03/19 08:00 99.9 F H 100 06/03/19 04:00 99.9 F H Weight Admit Weight 178 lb 12.718 oz Weight 184 lb 8.43 oz Most Recent Monitor Data Heart Rate from ECG 97 NIBP 118/78 NIBP BP-Mean 91 Respiration from ECG 23 SpO2 97 - Physical Exam General: No acute distress HEENT: Other (drain in place) Lungs: Clear to auscultation, Normal air movement Cardiovascular: Regular rate, Normal S1, Normal S2, No murmurs, Gallops, Rubs Abdomen: Normal bowel sounds, Soft, No tenderness, No hepatospenomegaly, No masses Extremities: No clubbing, No cyanosis, No edema, Normal pulses, No tenderness/ swelling Skin: No rashes, No breakdown, No significant lesion - Labs Result Diagrams: 06/03/19 03:21 06/02/19 03:17 Lab results: Laboratory Results - last 24 hr 06/03/19 03:21: WBC 20.4 H, RBC 2.14 L, Hgb 7.5 L, Hct 21.0 L, MCV 98.4 H, MCH 35.1 H, MCHC 35.6, RDW 17.2 H, Plt Count 38 L, MPV 9.2, Neutrophils % (Manual) 40 L, Band Neuts % (Manual) 4 L, Lymphocytes % (Manual) 23, Monocytes % (Manual ) 21 H, Metamyelocytes % (Man) 2 H, Myelocytes % 6 H, Differential Comment Blast -Like Cell(s), Other Cell Type 4, Hypochromia SLIGHT = 6-15 cells, Plt Morphology Comment Appears Decreased L 06/02/19 08:33: Flow Cytometry Interp 05/31/19 00:15: Blood Type A POSITIVE, Antibody Screen NEGATIVE, Crossmatch See Detail Status: lab reviewed by me A/P - Problem (1) Leukocytosis Current Visit: Yes Code(s): D72.829 - ELEVATED WHITE BLOOD CELL COUNT, UNSPECIFIED Status: Acute (2) Subdural hematoma Current Visit: Yes Code(s): S06.5X9A - TRAUM SUBDR HEM W LOC OF UNSP DURATION , INIT Status: Acute (3) Thrombocytopenia Current Visit: Yes Code(s): D69.6 - THROMBOCYTOPENIA, UNSPECIFIED Status: Acute - Plan Plan: flow cytometry shows 5% blasts, 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 Paredes Transfusion support.
[2019-06-03 17:09] LABS: Albumin 2.7 g/dL (2.9-4.4); Alpha 1 0.4 g/dL (0.0-0.4); Alpha 2 0.5 g/dL (0.4-1.0); Beta 0.8 g/dL (0.7-1.3); Globulin, Total 2.7 g/dL (2.2-3.9); M-Spike Not Observed g/dL (Not Observed)
[2019-06-04] MEDS: HYDROcodone/Acetaminophen 7.5/325 mg Tablet PO PRN ×5 (00:15→20:27)
[2019-06-04] MEDS: Cefepime 1 GM in Sodium Chloride 0.9% 100 ML IVPB SCH ×2 (04:00→15:41)
[2019-06-04 04:11] LABS: Anion Gap 12 mmol/L (10-20); BUN (Urea Nitrogen) 17 mg/dL (8.4-25.7); Calc. Creatinine Clearance 119 mL/min (70-130); Calcium 8.9 mg/dL (7.8-10.44); Carbon Dioxide 21 mmol/L (22-29); Chloride 107 mmol/L (98-107); Estimated GFR-MDRD Greater than 90; Glucose 117 mg/dL (70-105); Potassium 3.9 mmol/L (3.5-5.1); Sodium 136 mmol/L (136-145)
[2019-06-04 04:23] LABS: Band 5 % (5-11); Differential Comment Blast-Like Cell(s); Hemoglobin 8.8 g/dL (14.0-18.0); Lymphocytes 35 % (21-51); MDiff Complete? YES; Mean Corpuscular HGB CONC 37.6 g/dL (32.0-36.0); Mean Corpuscular Hemoglobin 36.2 pg (27.0-31.0); Mean Corpuscular Volume 96.1 fL (78.0-98.0); Mean Platelet Volume 9.8 fL (7.4-10.4); Metamyelocyte 3 % (0-0); Monocytes 3 % (0-10); Myelocyte 1 % (0-0); Neutrophil 47 % (42-75); Nucleated RBC 1 % (0); Platelet Count 33 thou/uL (130-400); Platelet Morphology Comment Appears Decreased; RBC Distribution Width 17.3 % (11.5-14.5); Reactive Lymphocytes 2 % (0-10); Red Blood Cell (RBC) Count 2.43 mill/uL (4.70-6.10); White Blood Cell (WBC) Count 18.1 thou/uL (4.8-10.8)
[2019-06-04] MEDS: NS 0.9% w/ 40 MEQ KCL 1,000 ML IV SCH ×2 (06:27→07:58)
[2019-06-04] MEDS: Pantoprazole 40 MG VIAL IVP SCH ×2 (08:03→20:31)
--- NOTE | 2019-06-04 09:02 | PDOC.HOSPP ---
- Subjective Subjective: Continues with platelet transfusions. Platelets dropped to 33 this morning. Had some bleeding into the bandage overnight. Otherwise no complaints. - Objective Vital Signs & Weight: Vital Signs (12 hours) Temp Pulse Ox 06/04/19 07:00 98.3 F 06/04/19 04:00 98.6 F 06/04/19 00:00 98.6 F 95 Weight Admit Weight 178 lb 12.718 oz Weight 186 lb 11.704 oz Most Recent Monitor Data Heart Rate from ECG 85 NIBP 115/69 NIBP BP-Mean 84 Respiration from ECG 14 SpO2 97 I&O: 06/03/19 06/04/19 06/05/19 06:59 06:59 06:59 Intake Total 2653 2553 Output Total 3230 2800 Balance -577 -247 Result Diagrams: 06/04/19 03:12 06/04/19 03:12 Hospitalist ROS - Review of Systems Constitutional: denies: fever, chills, sweats, weakness, malaise, other Respiratory: denies: cough, dry, shortness of breath, hemoptysis, SOB with excertion, pleuritic pain, sputum, wheezing, other Cardiovascular: denies: chest pain, palpitations, orthopnea, paroxysmal noc. dyspnea, edema, light headedness, other Gastrointestinal: denies: nausea, vomiting, abdominal pain, diarrhea, constipation, melena, hematochezia, other - Medication Medications: Active Medications Generic Name Dose Route Start Last Admin Trade Name Freq PRN Reason Stop Dose Admin Hydrocodone Bitart/Acetaminophen 1 tab 05/30/19 23:26 06/04/19 06:11 [place] 7.5/325 PO 1 tab Q4H PRN Administration Moderate Pain (4-6) Multivitamins 10 ml/ Folic 1,011.2 mls @ 80 mls/hr 05/31/19 13:45 06/03/19 12 :25 Acid 1 mg/ Thiamine HCl 100 mg IV 1,011.2 mls / Dextrose/Sodium Chloride Q24HR MARILYNN Administration Levetiracetam 500 mg/ Device 100 mls @ 200 mls/hr 05/31/19 21:00 06/04/19 08: 02 IVPB 100 mls BID MARILYNN Administration Potassium Chloride/Sodium Chloride 1,000 mls @ 75 mls/hr 05/31/19 18:45 06/04 07:58 Ns 0.9% W/ 40 Meq Kcl IV 1,000 mls .[id number] MARILYNN Administration Dexmedetomidine HCl 400 mcg/ 100 mls @ 0 mls/hr 05/31/19 21:00 06/01/19 22:16 Sodium Chloride IVPB 100 mls INF MARILYNN Administration Protocol Titrate Cefepime HCl 1 gm/ Sodium 100 mls @ 200 mls/hr 06/01/19 15:00 06/04/19 04:00 Chloride IVPB 100 mls 0300,1500 MARILYNN Administration Lorazepam 2 mg 05/31/19 13:33 05/31/19 20:34 Ativan SLOW IVP 2 mg Q4H PRN Administration Agitation Ondansetron HCl 4 mg 05/30/19 23:26 06/03/19 12:20 Zofran IVP 4 mg Q6H PRN Administration Nausea/Vomiting Pantoprazole Sodium 40 mg 06/01/19 21:00 06/04/19 08:03 Protonix IVP 40 mg BID MARILYNN Administration Polyvinyl Alcohol/Povidone 0 each 06/01/19 09:04 06/01/19 11:24 Refresh Classic Eye Drops EA EYE 1 each Q2H PRN Administration Dry Eyes Sodium Chloride 10 ml 05/31/19 02:41 06/02/19 08:42 Normal Saline Pf FS 10 ml PRN PRN Administration RECONSTITUTION - Exam General Appearance: NAD, awake alert General - other findings: Bandage in place on the right cranium, dried blood noted on the bandage Eye: PERRL, anicteric sclera ENT: normocephalic atraumatic, no oropharyngeal lesions, moist mucosa Neck: supple, symmetric, no JVD, no thyromegaly, no lymphadenopathy, no carotid bruit Heart: RRR, no murmur, no gallops, no rubs, normal peripheral pulses Respiratory: CTAB, no wheezes, no rales, no ronchi, normal chest expansion, no tachypnea, normal percussion Gastrointestinal: soft, non-tender, non-distended, normal bowel sounds, no palpable masses, no hepatomegaly, no splenomegaly, no bruit Extremities: no cyanosis, no clubbing, no edema Skin: normal turgor, no lesions, no rashes Neurological: cranial nerve grossly intact, normal sensation to touch, no weakness, no focal deficits, no new deficit Musculoskeletal: normal tone, normal strength, no muscle wasting Psychiatric: normal affect, normal behavior, A&O x 3 Hosp A/P (1) Subdural hematoma Code(s): S06.5X9A - TRAUM SUBDR HEM W LOC OF UNSP DURATION, INIT Status: Acute (2) Leukocytosis Code(s): D72.829 - ELEVATED WHITE BLOOD CELL COUNT, UNSPECIFIED Status: Acute (3) Thrombocytopenia Code(s): D69.6 - THROMBOCYTOPENIA, UNSPECIFIED Status: Acute (4) Polysubstance (excluding opioids) dependence Code(s): F19.20 - OTHER PSYCHOACTIVE SUBSTANCE DEPENDENCE, UNCOMPLICATED Status: Acute (5) Alcohol abuse Code(s): F10.10 - ALCOHOL ABUSE, UNCOMPLICATED Status: Acute (6) Macrocytic anemia Code(s): D53.9 - NUTRITIONAL ANEMIA, UNSPECIFIED Status: Acute - Plan Continue supportive transfusions of platelets and PRBC Possible MDS at play regarding his thrombocytopenia and elevated WBC Continue abx Hematology team on board. We will continue to follow along with primary team, Neurosurgery. Pending BM biopsy tomorrow.
--- NOTE | 2019-06-04 11:47 | PRG ---
DATE OF SERVICE: 06/04/2019 Mr. Escamilla is postoperative day 4 from john paul hole evacuation of right-sided spontaneous subdural hematoma in the presence of a blast crisis with concern of leukemia. I discussed this with he and his significant other. His platelets are back down to 33,000. I would be in favor of giving him another 6 pack of platelets. I should note that there is plan for bone marrow biopsy tomorrow. We will remove his subdural drain. Job ID: [id number]
--- NOTE | 2019-06-04 14:06 | PRG ---
DATE OF SERVICE: 06/04/2019 SERVICE: Pulmonary Medicine. INTERVAL HISTORY: The patient is doing fantastic from a respiratory standpoint. He remains on room air. Neurologically, he is perfectly intact. His subdural drainage was removed today. His urine seems to be clearing a little bit. The subdural drain spot continues to ooze some blood. As such, platelets are going to be administered. The patient denies any current fevers or chills and indicates that there is nothing I can do from that would make more comfortable. PHYSICAL EXAMINATION: VITAL SIGNS: Afebrile, pulse 91, blood pressure 108/72, respirations 15, and saturation 100% on room air. GENERAL: The patient is awake and alert, in no apparent distress. LUNGS: Wonderful air entry. No prolonged expiratory phase or wheezing is appreciated. HEART: Normal rate and regular. ABDOMEN: Soft, nontender, nondistended. Bowel sounds are positive. MUSCULOSKELETAL: No cyanosis or clubbing. No pitting in the bilateral lower extremities. NEUROLOGIC: Grossly nonfocal. LABORATORY DATA: WBC 18.1 and gently downtrending, hemoglobin 8.8 and stable, platelets 33,000 and gently downtrending. Differential remains unremarkable. Basic metabolic profile is unremarkable except for a bicarb of 21. Blood cultures x2, urine culture are negative. ASSESSMENT: 1. Right subdural hematoma, status post evacuation, drain removed. 2. Alcohol withdrawal syndrome. DISCUSSION AND PLAN: The patient is doing fine from a mentation standpoint. He is stable for transition to the floor. Pulmonary will follow in this location, but when he lands on the floor, we will sign off. Please call with additional questions or concerns through time. Job ID: [id number]
[2019-06-04] MEDS: Multivitamins, Adult 10 ML, Folic Acid 1 MG, Thiamine HCl 100 MG in Dextrose 5 %-0.45 %... IV SCH (16:26)
[2019-06-05] MEDS: HYDROcodone/Acetaminophen 7.5/325 mg Tablet PO PRN ×5 (00:10→21:10)
[2019-06-05 03:39] LABS: Hemoglobin 7.3 g/dL (14.0-18.0); Mean Corpuscular HGB CONC 35.2 g/dL (32.0-36.0); Mean Corpuscular Hemoglobin 33.3 pg (27.0-31.0); Mean Corpuscular Volume 94.7 fL (78.0-98.0); Mean Platelet Volume 9.1 fL (7.4-10.4); Platelet Count 24 thou/uL (130-400); RBC Distribution Width 17.3 % (11.5-14.5); Red Blood Cell (RBC) Count 2.19 mill/uL (4.70-6.10); White Blood Cell (WBC) Count 14.1 thou/uL (4.8-10.8)
[2019-06-05 03:57] LABS: Anion Gap 12 mmol/L (10-20); BUN (Urea Nitrogen) 17 mg/dL (8.4-25.7); Calc. Creatinine Clearance 122 mL/min (70-130); Calcium 8.9 mg/dL (7.8-10.44); Carbon Dioxide 22 mmol/L (22-29); Chloride 105 mmol/L (98-107); Estimated GFR-MDRD Greater than 90; Glucose 114 mg/dL (70-105); Sodium 135 mmol/L (136-145)
[2019-06-05 04:16] LABS: Band 2 % (5-11); Differential Comment Blast-Like Cell(s); Eosinophils 2 % (0-10); Hypochromia SLIGHT = 6-15 cells (100X) (0-5/hpf); Lymphocytes 25 % (21-51); MDiff Complete? YES; Metamyelocyte 1 % (0-0); Monocytes 27 % (0-10); Myelocyte 1 % (0-0); Neutrophil 39 % (42-75); Nucleated RBC 3 % (0); Platelet Morphology Comment Appears Decreased
[2019-06-05] MEDS: Cefepime 1 GM in Sodium Chloride 0.9% 100 ML IVPB SCH ×2 (04:20→16:03)
[2019-06-05] MEDS: NS 0.9% w/ 40 MEQ KCL 1,000 ML IV SCH ×2 (06:34→21:31)
--- NOTE | 2019-06-05 08:18 | CT ---
CT Brain WO Con HISTORY: Follow-up subdural hematoma. COMPARISON: 06/01/2019 study. FINDINGS: Once again right-sided john paul holes have been placed related to the right-sided subdural tony traci. The scan angle for these to examination is considerably different different which makes comparison difficult but I feel that the right-sided subdural hematoma which has acute elements is fa irly similar to the previous exam. There has been development of a small focus of subdural blood over the left posterior frontal convexity. The effacement of the sulci on the right is similar to the previous exam and slight shift of midline structures is stable. Fairly extensive sinus disease is again noted. IMPRESSION: 1. Fairly stable appearance to the right-sided subdural hematoma. 2. Small acute appearing focal left subdural blood collection seen over the left frontal convexity de veloping since the prior exam.
[2019-06-05] MEDS: Pantoprazole 40 MG VIAL IVP SCH (08:49)
--- NOTE | 2019-06-05 09:54 | PDOC.MOPN ---
Interval History: more responsive today. c/o pain from scalp norma. - Vital Signs Vital Signs: Vital Signs (12 hours) Temp Pulse Resp BP Pulse Ox 06/05/19 09:30 98.6 F 91 18 119/63 100 06/05/19 08:00 98.6 F 100 06/05/19 05:00 98.8 F 06/05/19 00:00 98.5 F Weight Admit Weight 178 lb 12.718 oz Weight 179 lb 3.773 oz Most Recent Monitor Data Heart Rate from ECG 86 NIBP 121/61 NIBP BP-Mean 81 Respiration from ECG 12 SpO2 99 - Physical Exam General: Alert HEENT: Other (incision rt frontal) Lungs: Clear to auscultation Cardiovascular: Regular rate Abdomen: Normal bowel sounds Skin: No rashes Neurological: Normal speech - Labs Result Diagrams: 06/05/19 03:18 06/05/19 03:18 Lab results: Laboratory Results - last 24 hr 06/05/19 03:18: WBC 14.1 H, RBC 2.19 L, Hgb 7.3 L, Hct 20.7 L, MCV 94.7, MCH 33.3 H, MCHC 35.2, RDW 17.3 H, Plt Count 24 L*, MPV 9.1, Neutrophils % (Manual) 39 L, Band Neuts % (Manual) 2 L, Lymphocytes % (Manual) 25, Monocytes % (Manual ) 27 H, Eosinophils % (Manual) 2, Metamyelocytes % (Man) 1 H, Myelocytes % 1 H, Neutrophils # Not Reportable, Lymphocytes # Not Reportable, Nucleated RBCs # ( Man) 3 H, Differential Comment Blast-Like Cell(s), Other Cell Type 3, Hypochromia SLIGHT = 6-15 cells, Plt Morphology Comment Appears Decreased L 06/05/19 03:18: Sodium 135 L, Potassium 4.0, Chloride 105, Carbon Dioxide 22, Anion Gap 12, BUN 17, Creatinine 0.79, Estimated GFR (MDRD) Greater than 90, Glucose 114 H, Calcium 8.9 06/04/19 11:44: Blood Type A POSITIVE, Antibody Screen NEGATIVE 05/31/19 00:15: Crossmatch See Detail Status: lab reviewed by me A/P - Problem (1) Leukocytosis Current Visit: Yes Code(s): D72.829 - ELEVATED WHITE BLOOD CELL COUNT, UNSPECIFIED Status: Acute (2) Subdural hematoma Current Visit: Yes Code(s): S06.5X9A - TRAUM SUBDR HEM W LOC OF UNSP DURATION , INIT Status: Acute (3) Thrombocytopenia Current Visit: Yes Code(s): D69.6 - THROMBOCYTOPENIA, UNSPECIFIED Status: Acute - Plan Plan: transfusing platelets this am discussed with patient and girlfriend plan for bone marrow concern for MDS vs leukemia continue supportive care SDH improving, drain out.
--- NOTE | 2019-06-05 10:41 | PRG ---
DATE OF SERVICE: 06/05/2019 Mr. Escamilla remains neurologically intact. His wounds are dry. Unfortunately, his platelets, not surprisingly, are down to 24,000, which again would lead to a spontaneous hemorrhage. His head CT is satisfactory with no significant reaccumulation of his right-sided multi-aged subdural hematoma. There is some left-sided subdural blood, but this is non-worrisome. Again, this is all consistent with his thrombocytopenia related to his new-onset blast crisis associated with newly-diagnosed likely leukemia. He is undergoing bone marrow biopsy today. His subdural drain has been removed. We will give him 2 six-packs of platelets to try and mitigate any reaccumulation of his subdural hematoma. Job ID: [id number]
--- NOTE | 2019-06-05 11:19 | PRG ---
DATE OF SERVICE: 06/05/2019 SUBJECTIVE: He is currently sleeping but has been awake this morning. OBJECTIVE: VITAL SIGNS: Temperature 98.6, pulse 100, blood pressure 119/63, O2 saturation in the low 90s while sleeping. HEENT: Unremarkable. NECK: No adenopathy or JVD. LUNGS: Clear. CARDIAC: S1 and S2, regular. LABORATORY DATA: White blood count 14, hematocrit 20.7, and platelet count 24. Sodium 135, potassium 4, chloride 105, CO2 of 22, BUN 17, creatinine 0.7, and glucose 144. ASSESSMENT: 1. Hematologic malignancy is suspected. 2. Status post evacuation of a subdural hematoma. 3. Resolved alcohol withdrawal. PLAN: Bone marrow biopsy is planned for later today. He is stable from a Pulmonary/Critical Care standpoint. He can be transferred to the floor. We will sign off once he is out of the ICU. Job ID: [id number]
[2019-06-05] MEDS ORDERED: Fentanyl 100 MCG/2 ML VIAL ONE (13:14)
[2019-06-05] MEDS ORDERED: Midazolam HCl 2 mg/2 ml Vial ONE (13:16)
[2019-06-05] MEDS ORDERED: Sodium Bicarbonate 2.5 MEQ/5 ML VIAL ONE (13:16)
[2019-06-05 15:10] LABS: Albumin-Ur 42.1 % (.); Alpha 1 - Ur 6.1 % (.); Alpha 2 - Ur 9.2 % (.); Gamma-Ur 11.5 % (.); M-Spike,% Not Observed % (Not Observed); Protein, Urine 280.8 mg/dL (Not Estab.)
--- NOTE | 2019-06-05 16:39 | PDOC.HOSPP ---
- Subjective Encounter Date: 06/05/19 Encounter Time: 13:00 Subjective: awake, oriented well, at bedside no sob - Objective Vital Signs & Weight: Vital Signs (12 hours) Temp Pulse Resp BP Pulse Ox 06/05/19 16:00 98.6 F 06/05/19 13:00 98.8 F 06/05/19 09:30 98.6 F 91 18 119/63 100 06/05/19 08:00 98.6 F 100 06/05/19 05:00 98.8 F Weight Admit Weight 178 lb 12.718 oz Weight 179 lb 3.773 oz Most Recent Monitor Data Heart Rate from ECG 107 NIBP 116/74 NIBP BP-Mean 88 Respiration from ECG 23 SpO2 99 I&O: 06/04/19 06/05/19 06/06/19 06:59 06:59 06:59 Intake Total 2553 2912 840 Output Total 2800 2475 1650 Balance -247 437 -810 Result Diagrams: 06/05/19 03:18 06/05/19 03:18 Hospitalist ROS - Medication Medications: Active Medications Generic Name Dose Route Start Last Admin Trade Name Freq PRN Reason Stop Dose Admin Acetaminophen 650 mg 05/30/19 23:26 06/05/19 00:11 Tylenol PO 650 mg Q4H PRN Administration Headache/Fever/Mild Pain (1-3) Hydrocodone Bitart/Acetaminophen 1 tab 05/30/19 23:26 06/05/19 09:17 [place] 7.5/325 PO 1 tab Q4H PRN Administration Moderate Pain (4-6) Multivitamins 10 ml/ Folic 1,011.2 mls @ 80 mls/hr 05/31/19 13:45 06/04/19 16 :26 Acid 1 mg/ Thiamine HCl 100 mg IV 1,011.2 mls / Dextrose/Sodium Chloride Q24HR MARILYNN Administration Potassium Chloride/Sodium Chloride 1,000 mls @ 75 mls/hr 05/31/19 18:45 06/05 06:34 Ns 0.9% W/ 40 Meq Kcl IV 1,000 mls .[id number] MARILYNN Administration Cefepime HCl 1 gm/ Sodium 100 mls @ 200 mls/hr 06/01/19 15:00 06/05/19 16:03 Chloride IVPB 100 mls 0300,1500 MARILYNN Administration Ondansetron HCl 4 mg 05/30/19 23:26 06/03/19 12:20 Zofran IVP 4 mg Q6H PRN Administration Nausea/Vomiting Polyvinyl Alcohol/Povidone 0 each 06/01/19 09:04 06/01/19 11:24 Refresh Classic Eye Drops EA EYE 1 each Q2H PRN Administration Dry Eyes Sodium Chloride 10 ml 05/31/19 02:41 06/02/19 08:42 Normal Saline Pf FS 10 ml PRN PRN Administration RECONSTITUTION - Exam General Appearance: awake alert Eye: PERRL, scleral icterus ENT: no oropharyngeal lesions, moist mucosa Neck: supple, no JVD Heart: RRR, no murmur Respiratory: no wheezes, no rales Gastrointestinal: soft, non-tender, non-distended, normal bowel sounds Extremities: no cyanosis, no edema Neurological: cranial nerve grossly intact, no focal deficits Psychiatric: normal affect, A&O x 3 Hosp A/P (1) Subdural hematoma Code(s): S06.5X9A - TRAUM SUBDR HEM W LOC OF UNSP DURATION, INIT Status: Acute (2) Alcohol abuse Code(s): F10.10 - ALCOHOL ABUSE, UNCOMPLICATED Status: Acute (3) Anemia Code(s): D64.9 - ANEMIA, UNSPECIFIED Status: Acute Qualifiers: Anemia type: other cause Other causes of anemia: other cause, not classified Qualified Code(s): D64.89 - Other specified anemias (4) Folate deficiency Code(s): E53.8 - DEFICIENCY OF OTHER SPECIFIED B GROUP VITAMINS Status: Acute (5) Polysubstance (excluding opioids) dependence Code(s): F19.20 - OTHER PSYCHOACTIVE SUBSTANCE DEPENDENCE, UNCOMPLICATED Status: Acute (6) Thrombocytopenia Code(s): D69.6 - THROMBOCYTOPENIA, UNSPECIFIED Status: Acute - Plan has recieved a total of 5u prbc and 8 pack platelets this admission has jaundice now, ?likely from hemolysis or transfusion related, unclear if he had it at admission will check hep panel had evacuation of SDH on the right side, no motor deficits, cognition is likely at baseline now. on banana bag, keppra, protonix, iv fluids is tolerating oral diet may tx to medsurg floor needs to amb had bone marrow Bx today will likely need further transfusions of either prbc or platelets has right cheek swelling, no tenderness unless pressed hard, poor oral dentition , has dentures+, likely hematoma in cheek OFMS consultation if it gets bigger
--- NOTE | 2019-06-05 17:11 | CT ---
CT-guided random bone marrow biopsy: DATE: 06/05/2019 HISTORY: 59-year-old male with leukocytosis, thrombocytopenia, and blasts found on blood smear. TECHNIQUE: Signed informed consent obtained. Patient placed prone on CT table. Procedure performed under step CT guidance. Skin posterior to the right posterior superior iliac spine prepped and draped in usual sterile fashion. 25-gauge needle used to apply buffered lidocaine, first superficially, then deeply t o the periosteum of the right PSIS. With trocar, 11-gauge bone marrow biopsy needle advanced into the bone, slightly deep to the cortex of the PSIS manually. Trocar removed. 20 mL syringe used to asp irate 10 mL of bone marrow aspirate, and given to clinical laboratory technologist to prepare slides. Next, [employer] mechanical battery power drill mounted on the hollow biopsy needle, and thrust deep into th e right iliac bone, and withdrawn. 5.5 cm bone plug sample obtained in 2 fragments. Compression held at the puncture site. Patient tolerated procedure well. No complications. IMPRESSION: 1. Successful bone marrow aspiration: 10 mL. 2. Successful 11-gauge 5.5 cm piece of core bone marrow biopsy.
[2019-06-05] MEDS: Multivitamins, Adult 10 ML, Folic Acid 1 MG, Thiamine HCl 100 MG in Dextrose 5 %-0.45 %... IV SCH (17:21)
[2019-06-05] MEDS ORDERED: levETIRAcetam 500 MG TAB PO SCH (21:00)
[2019-06-05] MEDS ORDERED: Polyethylene Glycol 3350 17 GM Packet PO PRN (23:06)
[2019-06-05] MEDS ORDERED: Bisacodyl 10 MG SUPP PR PRN (23:07)
[2019-06-05] MEDS ORDERED: Polyethylene Glycol 3350 17 GM Packet PO SCH (23:15)
[2019-06-06] MEDS: HYDROcodone/Acetaminophen 7.5/325 mg Tablet PO PRN ×5 (00:50→17:24)
[2019-06-06] MEDS: Cefepime 1 GM in Sodium Chloride 0.9% 100 ML IVPB SCH (03:18)
[2019-06-06] MEDS ORDERED: Morphine 2 MG/ML SYRINGE SLOW IVP SCH (04:15)
[2019-06-06 05:55] LABS: Anion Gap 14 mmol/L (10-20); BUN (Urea Nitrogen) 16 mg/dL (8.4-25.7); Calc. Creatinine Clearance 119 mL/min (70-130); Carbon Dioxide 22 mmol/L (22-29); Chloride 105 mmol/L (98-107); Estimated GFR-MDRD Greater than 90; Glucose 129 mg/dL (70-105); Potassium 3.9 mmol/L (3.5-5.1); Sodium 137 mmol/L (136-145)
[2019-06-06 06:20] LABS: Hemoglobin 6.2 g/dL (14.0-18.0); Mean Corpuscular HGB CONC 35.3 g/dL (32.0-36.0); Mean Corpuscular Hemoglobin 33.5 pg (27.0-31.0); Mean Corpuscular Volume 94.9 fL (78.0-98.0); RBC Distribution Width 16.9 % (11.5-14.5); Red Blood Cell (RBC) Count 1.85 mill/uL (4.70-6.10)
[2019-06-06 06:38] LABS: Platelet Count 21 thou/uL (130-400)
[2019-06-06 06:42] LABS: Band 10 % (5-11); Differential Comment Blast-Like Cell(s); Lymphocytes 39 % (21-51); MDiff Complete? YES; Metamyelocyte 2 % (0-0); Monocytes 3 % (0-10); Myelocyte 9 % (0-0); Neutrophil 32 % (42-75); Nucleated RBC 5 % (0); Platelet Morphology Comment Appears Decreased; White Blood Cell (WBC) Count 9.6 thou/uL (4.8-10.8)
[2019-06-06] MEDS: NS 0.9% w/ 40 MEQ KCL 1,000 ML IV SCH (09:00)
[2019-06-06 09:52] LABS: ALT (SGPT) 28 U/L (8-55); AST (SGOT) 90 U/L (5-34); Albumin 3.5 g/dL (3.5-5.0); Alkaline Phosphatase 182 U/L (40-110); Bilirubin, Direct 3.4 mg/dL (0.1-0.3); Bilirubin, Total 4.9 mg/dL (0.2-1.2); Protein, Total 6.5 g/dL (6.0-8.3)
--- NOTE | 2019-06-06 10:12 | PRG ---
DATE OF SERVICE: 06/06/2019 Mr. Escamilla remains neurologically intact with some periods of impulsive behavior. His right cranial wounds are oozing again due to his pancytopenia. We will give 2 more 6 packs of platelets as his platelets have dropped to 24. He underwent bone marrow biopsy. I would recommend platelet count stay greater than 60,000. He has also had blood ordered. Hematology is following. Job ID: [id number]
[2019-06-06 10:17] LABS: HBCM Index 0.06 S/CO (0-0.79); HBSAg Index 0.22 S/CO (0-0.99); Hep A IgM AB Non-Reactive (NonReactive); Hep B Surf Ag Non-Reactive S/CO (NonReactive); Hepatitis B Core IgM Abs Non-Reactive (NonReactive)
[2019-06-06 10:22] LABS: Hep C IgG Ab Reflex HepC Qnt (NonReactive); Hep C Index 11.18 S/CO (0-0.79)
[2019-06-06 11:21] VITALS: BMI 26.4
--- NOTE | 2019-06-06 11:42 | PRG ---
DATE OF SERVICE: 06/02/2019 SUBJECTIVE: This is a 59-year-old male, hospitalized over the weekend with a subdural hematoma. He underwent surgery by Dr. Mariano Hart and has done well. I was asked to see the patient because of anemia and history of some tarry stool a couple of days before admission. The patient has had no stool over the last 3 days. liquid diet. Blood count is fairly stable. He has anemia and also . He has been seen by Hematology and a bone marrow aspiration being planned today. He offers no complaints. PHYSICAL EXAMINATION: VITAL SIGNS: Pulse rate is 106, blood pressure is . CARDIOVASCULAR: . LUNGS: . LABORATORY DATA: platelet count is 89,000. RECOMMENDATIONS: 1. Continue scheduled H and H. 2. Transfuse p.r.n. 3. . 4. Possible EGD in the next couple of days. Job ID: [id number]
--- NOTE | 2019-06-06 11:52 | PDOC.MOPN ---
Interval History: Alert today. Family at bedside and updated. - Vital Signs Vital Signs: Vital Signs (12 hours) Temp Pulse Resp BP BP Pulse Ox 06/06/19 10:05 98.0 F 16 137/71 92 L 06/06/19 07:51 98.5 F 100 18 134/79 92 L 06/06/19 03:27 98.6 F 96 20 136/75 94 L 06/06/19 00:12 126/87 06/05/19 23:54 98.1 F 99 18 148/76 H 95 Weight Admit Weight 178 lb 12.718 oz Weight 179 lb 0.246 oz Most Recent Monitor Data Heart Rate from ECG 111 NIBP 123/69 NIBP BP-Mean 87 Respiration from ECG 26 SpO2 99 - Physical Exam General: Alert HEENT: Other Lungs: Clear to auscultation Cardiovascular: Regular rate Abdomen: Normal bowel sounds Neurological: Normal speech - Labs Result Diagrams: 06/06/19 05:11 06/06/19 05:11 Lab results: Laboratory Results - last 24 hr 06/06/19 09:09: Hepatitis A IgM Ab Non-Reactive, Hep Bs Antigen Non-Reactive, Hep B Core IgM Ab Non-Reactive, Hepatitis C Antibody Reflex HepC Qnt H 06/06/19 09:09: Total Bilirubin 4.9 H, Direct Bilirubin 3.4 H, AST 90 H, ALT 28 , Alkaline Phosphatase 182 H, Serum Total Protein 6.5, Albumin 3.5 06/06/19 05:11: WBC 9.6, RBC 1.85 L, Hgb 6.2 L, Hct 17.6 L, MCV 94.9, MCH 33.5 H , MCHC 35.3, RDW 16.9 H, Plt Count 21 L*, MPV 10.0, Neutrophils % (Manual) 32 L , Band Neuts % (Manual) 10, Lymphocytes % (Manual) 39, Monocytes % (Manual) 3, Metamyelocytes % (Man) 2 H, Myelocytes % 9 H, Neutrophils # Not Reportable, Lymphocytes # Not Reportable, Nucleated RBCs # (Man) 5 H, Differential Comment Blast-Like Cell(s), Other Cell Type 5, Plt Morphology Comment Appears Decreased L 06/06/19 05:11: Sodium 137, Potassium 3.9, Chloride 105, Carbon Dioxide 22, Anion Gap 14, BUN 16, Creatinine 0.78, Estimated GFR (MDRD) Greater than 90, Glucose 129 H, Calcium 9.0 06/05/19 14:00: Flow Cytometry Interp 06/04/19 11:44: Blood Type A POSITIVE, Antibody Screen NEGATIVE, Crossmatch See Detail 06/01/19 16:50: Urine Total Protein 280.8, Urine Albumin 42.1, U Alpha-1- Globulin (%) 6.1, U Zmlhz-[id number]-Hxdrhegw (%) 9.2, U Beta Globulin (%) 31.0, U Gamma Globulin (%) 11.5, U PEP M-To Not Observed, Urine PEP Interpret 05/31/19 00:15: Crossmatch See Detail Status: lab reviewed by me - Pathology Pathology: 80-90% blasts on core biopsy A/P - Problem (1) Leukocytosis Current Visit: Yes Code(s): D72.829 - ELEVATED WHITE BLOOD CELL COUNT, UNSPECIFIED Status: Acute (2) Subdural hematoma Current Visit: Yes Code(s): S06.5X9A - TRAUM SUBDR HEM W LOC OF UNSP DURATION , INIT Status: Acute (3) Thrombocytopenia Current Visit: Yes Code(s): D69.6 - THROMBOCYTOPENIA, UNSPECIFIED Status: Acute (4) Acute myeloblastic leukemia Current Visit: Yes Code(s): C92.00 - ACUTE MYELOBLASTIC LEUKEMIA, NOT HAVING ACHIEVED REMISSION Status: Acute - Plan Plan: 80-90% blasts on core biopsy discussed with patient and family initiate transfer to [facility] transfuse platelets
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
--- NOTE | 2019-06-06 17:09 | PDOC.HOSPP ---
- Subjective Encounter Date: 06/06/19 Encounter Time: 09:00 Subjective: has some oozing from surgical site over right scalp area eating minimally, family at bedside - Objective Vital Signs & Weight: Vital Signs (12 hours) Temp Pulse Pulse Resp BP BP Pulse Ox 06/06/19 14:45 98.4 F 111 H 16 128/73 06/06/19 12:00 98.4 F 105 H 16 130/75 91 L 06/06/19 10:05 98.0 F 16 137/71 92 L 06/06/19 07:51 98.5 F 100 18 134/79 92 L Weight Admit Weight 178 lb 12.718 oz Weight 179 lb 0.246 oz Most Recent Monitor Data Heart Rate from ECG 111 NIBP 123/69 NIBP BP-Mean 87 Respiration from ECG 26 SpO2 99 I&O: 06/05/19 06/06/19 06/07/19 06:59 06:59 06:59 Intake Total 2912 1642 877 Output Total 0165 3950 700 Balance 437 -8544 177 Result Diagrams: 06/06/19 05:11 06/06/19 05:11 Hospitalist ROS - Medication Medications: Active Medications Generic Name Dose Route Start Last Admin Trade Name Freq PRN Reason Stop Dose Admin Acetaminophen 650 mg 05/30/19 23:26 06/05/19 00:11 Tylenol PO 650 mg Q4H PRN Administration Headache/Fever/Mild Pain (1-3) Hydrocodone Bitart/Acetaminophen 1 tab 05/30/19 23:26 06/06/19 13:04 [place] 7.5/325 PO 1 tab Q4H PRN Administration Moderate Pain (4-6) Multivitamins 10 ml/ Folic 1,011.2 mls @ 80 mls/hr 05/31/19 13:45 06/05/19 17 :21 Acid 1 mg/ Thiamine HCl 100 mg IV 1,011.2 mls / Dextrose/Sodium Chloride Q24HR MARILYNN Administration Potassium Chloride/Sodium Chloride 1,000 mls @ 75 mls/hr 05/31/19 18:45 06/06 09:00 Ns 0.9% W/ 40 Meq Kcl IV 1,000 mls .[id number] MARILYNN Administration Ondansetron HCl 4 mg 05/30/19 23:26 06/03/19 12:20 Zofran IVP 4 mg Q6H PRN Administration Nausea/Vomiting Pantoprazole Sodium 40 mg 06/06/19 09:00 06/06/19 09:01 Protonix PO 40 mg DAILY MARILYNN Administration Polyvinyl Alcohol/Povidone 0 each 06/01/19 09:04 06/01/19 11:24 Refresh Classic Eye Drops EA EYE 1 each Q2H PRN Administration Dry Eyes Sodium Chloride 10 ml 05/31/19 02:41 06/02/19 08:42 Normal Saline Pf FS 10 ml PRN PRN Administration RECONSTITUTION - Exam General Appearance: awake alert Eye: PERRL, scleral icterus ENT: no oropharyngeal lesions, dry oral mucosa Neck: supple, no JVD Heart: RRR, no murmur Respiratory: no wheezes, no rales Gastrointestinal: soft, non-tender, non-distended, normal bowel sounds Extremities: no cyanosis, no edema Neurological: cranial nerve grossly intact, no focal deficits Hosp A/P (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 - ACUTE MYELOBLASTIC LEUKEMIA, NOT HAVING ACHIEVED REMISSION Status: Acute Qualifiers: Leukemia Active/Remission status: without remission Qualified Code(s): C92.00 - Acute myeloblastic leukemia, not having achieved remission (2) Subdural hematoma Code(s): S06.5X9A - TRAUM SUBDR HEM W LOC OF UNSP DURATION, INIT Status: Acute (3) Alcohol abuse Code(s): F10.10 - ALCOHOL ABUSE, UNCOMPLICATED Status: Chronic (4) Anemia Code(s): D64.9 - ANEMIA, UNSPECIFIED Status: Acute Qualifiers: Anemia type: other cause Other causes of anemia: other cause, not classified Qualified Code(s): D64.89 - Other specified anemias (5) Folate deficiency Code(s): E53.8 - DEFICIENCY OF OTHER SPECIFIED B GROUP VITAMINS Status: Acute (6) Polysubstance (excluding opioids) dependence Code(s): F19.20 - OTHER PSYCHOACTIVE SUBSTANCE DEPENDENCE, UNCOMPLICATED Status: Acute (7) Thrombocytopenia Code(s): D69.6 - THROMBOCYTOPENIA, UNSPECIFIED Status: Acute - Plan has recieved a total of 6u prbc and 12 pack platelets this admission has jaundice, likely from hemolysis or transfusion related, unclear if he had it at admission, t.bili of 4 had evacuation of SDH on the right side, no motor deficits, cognition is likely at baseline now. on banana bag, keppra, protonix, iv fluids is tolerating oral diet needs to amb bone marrow Bx shows AML with myeloid differentiation. D/w MD Ash Schreiber has accepted, will likely take him in am when bed becomes available per staff. will likely need further transfusions of either prbc or platelets has right cheek swelling, no tenderness unless pressed hard, poor oral dentition , has dentures+, likely hematoma in cheek May dc anytime MD Aleman can take him
[2019-06-06] MEDS: Multivitamins, Adult 10 ML, Folic Acid 1 MG, Thiamine HCl 100 MG in Dextrose 5 %-0.45 %... IV SCH (18:51)
[2019-06-06 19:43] LABS: Band 24 % (5-11); Differential Comment Blast-Like Cell(s); Hemoglobin 7.7 g/dL (14.0-18.0); Lymphocytes 26 % (21-51); MDiff Complete? YES; Mean Corpuscular HGB CONC 35.4 g/dL (32.0-36.0); Mean Corpuscular Hemoglobin 33.8 pg (27.0-31.0); Mean Corpuscular Volume 95.5 fL (78.0-98.0); Mean Platelet Volume 8.7 fL (7.4-10.4); Metamyelocyte 5 % (0-0); Monocytes 2 % (0-10); Myelocyte 4 % (0-0); Neutrophil 23 % (42-75); Nucleated RBC 1 % (0); Platelet Count 46 thou/uL (130-400); Platelet Morphology Comment Appears Decreased; RBC Distribution Width 15.4 % (11.5-14.5); Reactive Lymphocytes 6 % (0-10); Red Blood Cell (RBC) Count 2.28 mill/uL (4.70-6.10); White Blood Cell (WBC) Count 13.3 thou/uL (4.8-10.8)
[2019-06-06 20:07] VITALS: BP 138/78; TEMP 99.1
--- NOTE | 2019-06-09 07:10 | PQF ---
Gerson Escamilla JASON MD [id number] CLINICAL DOCUMENTATION CLARIFICATION FORM: POST DISCHARGE Addendum to original discharge summary date: ____ Late entry note date: __ DATE: 06/09/2019 ATTN: ANIA ATKINSON MD Please exercise your independent, professional judgment in responding to the clarification form. Clinical indicators are provided on the bottom of this form for your review Please check appropriate box(s) to clarify if the following diagnosis has been ruled in or ruled out: Disseminated intravascular coagulation [ ] Ruled in diagnosis [ ] Continue to treat [ ] Resolved [ ] Ruled out diagnosis [ ] Cannot rule out diagnosis [ ] Other diagnosis [ ] Unable to determine For continuity of documentation, please document condition throughout progress notes and discharge summary. Thank You. CLINICAL INDICATORS - SIGNS / SYMPTOMS / LABS - DIC( Disseminated intravascular coagulation)-Hospital PN,06/01, Roland Shaikh MD - concern for AML with possible DIC complications-Hospital PN,06/01, Roland Shaikh MD - some of this certainly may be dilutional, but there is certainly some sort of myeloproliferative or hemorrhagic disorder play here-Progress note, 06/02, Eduin Quintana MD - Anemia, thrombocytopenia, Blast like cell on CBC-Progress note, 06/02, Mynor Virk MD - Folate deficiency- Hospital PN, 06/02, Pacheco Lamar MD - Monitored especially for concern for DIC and some sort of bleeding disorder- Progress note, 06/02, Rafa Lux - He feels he is not a DIC- Consultation, 06/02, Naveen Camacho RISK FACTORS -Large right subdural hematoma,a cute on chronic- H&P, 06/02, Eduin Quintana MD -Thrombocytopenia- H&P, 06/02, Eduin Quintana MD - mild alcohol withdrawal -Progress note, 06/02, Mynor Virk MD TREATMENTS -Consultation, 06/02 -Kvkiykpexse-zlvrnide-90/28 -Thrombin.IV-MAR 05/31 (This form is maintained as a part of the permanent medical record) 2014 [employer]. All Rights Reserved [email or web address] [not provided] MTDD
--- NOTE | 2019-06-09 09:19 | DIS ---
DATE OF ADMISSION: 05/30/2019 DATE OF DISCHARGE: 06/06/2019 DISCHARGE DISPOSITION: To [facility]. PRIMARY DISCHARGE DIAGNOSES: Acute myeloid leukemia for further workup and treatment, pancytopenia, subdural hematoma status post drainage, history of alcohol abuse, and substance abuse. PROCEDURES DONE DURING HOSPITALIZATION: The patient received a total of 6 units of packed cell and 12 packs of platelets. He has had evacuation of subdural hematoma done by Dr. Hart on 05/31/2019. He had right frontal john paul hole evacuation of chronic subdural hematoma. Initial CT brain showed right-sided subdural hematoma suggesting acute on chronic with mass effect on the right hemisphere resulting in 15 mm of [id number] midline shift. No definite transtentorial herniation was seen. Small anterior left frontal acute subdural hematoma was seen. Abdominal and pelvic CAT scan done on 06/01/2019 showed punctate gallstones, stranding in the region of the pancreatic head and proximal body/uncinate process, nonobstructing renal calculi. Bone marrow biopsy, results showed findings suggestive of possible acute myeloid leukemia with monocytic differentiation, chromosome analysis performed at Rad shows karyotype [id number], please see a full report on [facility]. 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 Discharge H and H were 7.7 and 21, platelet count 46, white count of 13, MCV was 95 with 24% bands, 23% neutrophils, 26% lymphocytes, 5% metamyelocytes, and 4% myelocytes. Had a white count of 25 on the day of admission with platelet count of 89 on the day of admission. PT, INR, and PTT were 15, 1.2, and 31. Discharge total bilirubin was 4.9, direct bilirubin 3.4, AST 90, ALT 28, alkaline phosphatase 182, albumin was 3.5, amylase is 46, and lipase 32. Serum protein electrophoresis done, did not reveal any M spike. LDH was 2676 units/L. Urine electrophoresis did not reveal any M spike. Urine drug screen was positive for methamphetamine, benzodiazepines, and opiates plasma alcohol less than 10. Hep C PCR showed [id number] log international units/mL. HBS antigen was nonreactive. Hepatitis B core IgM antibody nonreactive. Hepatitis A IgM antibody nonreactive. Flow cytometry results are available on [facility]. INPATIENT CONSULTS: Ms. Janice oHdge for nurse practitioner for Oncology, Dr. Hart for Neurosurgery, and Dr. Lowe for Pulmonary/Critical Care. DISCHARGE MEDICATIONS: 1. Protonix 40 mg daily. 2. Lisinopril 2.5 mg p.o. DISCHARGE PLAN: The patient is being discharged to [facility] for further treatment and care of acute myeloid leukemia. BRIEF COURSE DURING HOSPITALIZATION: The patient initially got admitted on the with complaints of dizziness, headache, and falls. Initial CT scan was suggestive of large right subdural hematoma with [id number] shift. He was evaluated by Dr. Hart. The patient was given multiple transfusions including platelets and packed cells and was taken to OR and has had evacuation done by Dr. Hart. The patient's pancytopenia continued requiring a total of 6 units of packed cell and 12 packs of leukocyte reduced platelet transfusions. He has had bone marrow biopsy and flow cytometry done. Oncology consultation was requested as well. Per Oncology advise, the patient had nearly 80% of marrow filled with blasts. In view of this, pancytopenia and with patient developing jaundice, a decision was made to transfer patient to [facility] for further care. Please note, I have seen and examined patient on the day of discharge. Job ID: [id number] [facility]
[2019-06-09 13:10] LABS: HCV I.Units 11000000 IU/mL (.); HCV I.Units log10 7.041 (.); Hep C PCR-Quant See Final Results IU/mL (.)
== END 2019-06-06 20:45 | disposition short-term general hospital (02) | DRG 26 ==
LOC: CCU 23:08 → SURG A 06-05 18:07
PROVIDERS: ADMIT Surgery; ATTEND Internal Medicine
PROC: 00943ZZ Drainage of Intracranial Subdural Space, Percutaneous Approach (ICD-10-PCS; principal; 2019-05-30)
PROC: 07DR3ZX Extraction of Iliac Bone Marrow, Percutaneous Approach, Diagnostic (ICD-10-PCS; 2019-06-05)
DX: S06.5X9A Traumatic subdural hemorrhage with loss of consciousness of unspecified duration, initial encounter (principal); F10.239 Alcohol dependence with withdrawal, unspecified; D62 Acute posthemorrhagic anemia; D61.818 Other pancytopenia; C92.00 Acute myeloblastic leukemia, not having achieved remission; F17.210 Nicotine dependence, cigarettes, uncomplicated; F19.10 Other psychoactive substance abuse, uncomplicated; E78.5 Hyperlipidemia, unspecified; E53.8 Deficiency of other specified B group vitamins; R31.0 Gross hematuria; D63.8 Anemia in other chronic diseases classified elsewhere; Z91.81 History of falling
CPT/HCPCS: 20225; 36415; 36430; 70450; 71045; 74176; 76705; 77012; 80048; 80053; 80074; 80076; 80306; 80307; 81001; 82150; 82607; 82746; 83615; 83690; 84165; 84166; 84436; 84439; 84443; 84550; 85025; 85060; 85097; 85362; 85379; 85384; 85610; 85652; 85730; 86140; 86850; 86900; 86901; 87040; 87086; 87522; 88184; 88237; 88305; 88311; 88313; 88341; 88342; 93970; C9113; J0692; J1100; J1953; J2001; J2060; J2250; J2270; J2370; J2405; J2543; J2704; J3010; J3360; J3411; J3480; J3490; J7042; P9016; P9035